=== PATIENT | female | born 1940 | race Two or more races ===

== ENCOUNTER 2018-05-01 13:03 | Inpatient (IN) | payer MEDICARE, OTHER ==
[~2018-05-01] VITALS: Ht 160 cm; Wt 85.7 kg
[~2018-05-01 13:03] MED LIST: ALBUTEROL SULFAT2 MG PO; BISACODYL5 MG RC; CEFEPIME 22 GM/100 M IV; FUROSEMIDE20 M1 PO; HYDRALAZINE HCL10 MG PO; LEVAQUIN500 MG GT; LEVOTHYROXINE100 MCG PO; LEXAPRO10 MG ORAL; MULTI-DELYN237 ML GT; POTASSIUM30 MEQ/22. GT; PRO-STAT LIQUID30 ML GT; PROTONIX40 M2 GT; ROBITUSSIN100 MG/52 GT; ROBITUSSIN100 MG/52 ORAL; ZYPREXA2.5 MG PO
[2018-05-01 13:09] VITALS: BP 151/84
[2018-05-01 13:42] LABS: BASOPHILS % (AUTO) 1.6 % (0.0-2.0); EOSINOPHILS % (AUTO) 3.1 % (0.0-3.0); HEMOGLOBIN 14.7 G/DL (12.0-16.0); LYMPHOCYTES % (AUTO) 34.5 % (20.0-45.0); MEAN CORPUSCULAR VOLUME 90 FL (80-99); NEUTROPHILS % (AUTO) 50.9 % (45.0-75.0); PLATELET COUNT 256 K/UL (150-450); RED BLOOD COUNT 4.98 M/UL (4.20-5.40); RED CELL DISTRIBUTION WIDTH 13.4 % (11.6-14.8); WHITE BLOOD COUNT 7.9 K/UL (4.8-10.8)
[2018-05-01] MEDS ORDERED: ACETAMINOPHEN325 M1 ORAL (13:45)
[2018-05-01] MEDS ORDERED: CALCI-CHEW500 MG PO (13:45)
[2018-05-01 13:55] LABS: ANION GAP 8 mmol/L (5-15); BLOOD UREA NITROGEN 20 mg/dL (7-18); CALCIUM 9.1 MG/DL (8.5-10.1); CARBON DIOXIDE 30 MMOL/L (21-32); CHLORIDE 104 MMOL/L (98-107); CREATININE 1.3 MG/DL (0.55-1.30); POTASSIUM 4.3 MMOL/L (3.5-5.1); SODIUM 141 MMOL/L (136-145)
[2018-05-01 14:01] LABS: ALANINE AMINOTRANSFERASE 7 U/L (12-78); ALBUMIN 3.2 G/DL (3.4-5.0); ALBUMIN/GLOBULIN RATIO 0.6 (1.0-2.7); ALKALINE PHOSPHATASE 124 U/L (46-116); ASPARTATE AMINO TRANSFERASE 11 U/L (15-37); BILIRUBIN,TOTAL 0.3 MG/DL (0.2-1.0)
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
[2018-05-01 15:14] LABS: APPEARANCE,URINE CLEAR; BILIRUBIN, URINE NEGATIVE (NEGATIVE); COLOR,URINE PALE YELLOW; GLUCOSE, URINE (UA) NEGATIVE (NEGATIVE); KETONES,URINE NEGATIVE (NEGATIVE); LEUKOCYTE ESTERASE ,URINE 2+ (NEGATIVE); NITRITE,URINE NEGATIVE (NEGATIVE); PH,URINE 6 (4.5-8.0); PROTEIN,URINE NEGATIVE (NEGATIVE); UROBILINOGEN,URINE NORMAL MG/DL (0.0-1.0)
[2018-05-01] MEDS ORDERED: cefTRIAXone 1 GM in NS 55 ML IVPB ONE (15:45)
[2018-05-01 18:32] VITALS: BP 134/75
[2018-05-01] MEDS ORDERED: NITROFURANTOIN100 M2 ORAL (20:51)
[2018-05-01] MEDS ORDERED: MILK OF MA400 MG/51 ORAL (23:42)
[2018-05-01] MEDS ORDERED: POTASSIUM CHLO10 ME3 ORAL (23:45)
[2018-05-02] VITALS (7 sets, daily range): BP systolic 102–136; BP diastolic 56–88
[2018-05-02] MEDS ORDERED: Bisacodyl EC 5mg tab ORAL SCH
[2018-05-02] MEDS ORDERED: HydrALAZINE 10mg Tab ORAL PRN
[2018-05-02] MEDS ORDERED: Milk of Magnesia 30ml Ud ORAL PRN
[2018-05-02] MEDS: OLANZapine 2.5mg tab ORAL SCH ×2 (08:59→17:44)
[2018-05-02 09:16] LABS: EOSINOPHILS % (AUTO) 2.1 % (0.0-3.0); HEMATOCRIT 43.6 % (37.0-47.0); HEMOGLOBIN 14.5 G/DL (12.0-16.0); LYMPHOCYTES % (AUTO) 33.7 % (20.0-45.0); MEAN CORPUSCULAR VOLUME 90 FL (80-99); MONOCYTES % (AUTO) 8.2 % (1.0-10.0); NEUTROPHILS % (AUTO) 55.1 % (45.0-75.0); PLATELET COUNT 251 K/UL (150-450); RED BLOOD COUNT 4.83 M/UL (4.20-5.40); RED CELL DISTRIBUTION WIDTH 13.4 % (11.6-14.8); WHITE BLOOD COUNT 8.1 K/UL (4.8-10.8)
[2018-05-02 09:19] LABS: ALBUMIN 3.1 G/DL (3.4-5.0); ALBUMIN/GLOBULIN RATIO 0.6 (1.0-2.7); ALKALINE PHOSPHATASE 114 U/L (46-116); ANION GAP 7 mmol/L (5-15); ASPARTATE AMINO TRANSFERASE 12 U/L (15-37); BILIRUBIN,TOTAL 0.3 MG/DL (0.2-1.0); BLOOD UREA NITROGEN 18 mg/dL (7-18); CALCIUM 8.7 MG/DL (8.5-10.1); CARBON DIOXIDE 29 MMOL/L (21-32); CHLORIDE 104 MMOL/L (98-107); CREATININE 1.1 MG/DL (0.55-1.30); POTASSIUM 4.3 MMOL/L (3.5-5.1); SODIUM 140 MMOL/L (136-145)
[2018-05-02 09:33] LABS: ALANINE AMINOTRANSFERASE 7 U/L (12-78)
[2018-05-02] MEDS ORDERED: LORazepam 1mg tab ORAL PRN (11:15)
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
[2018-05-03] VITALS: BP 118/72
[2018-05-03 08:00] VITALS: BP 127/77
[2018-05-03] MEDS: OLANZapine 2.5mg tab ORAL SCH ×2 (09:31→17:21)
[2018-05-03 12:00] VITALS: BP 128/82
--- NOTE | 2018-05-03 13:32 | Infectious Diseases Prog Note ---
Assessment/Plan Assessment/Plan A; 1. Mild pyuria and hematuria. Doubt UTI 2. Dementia with abnormal behavior. 3. Hypothyroidism. 4. Hypertension. 5. Congestive heart failure by history. P; observe off antibiotic Subjective ROS Limited/Unobtainable: No Constitutional: Reports: no symptoms Respiratory: Reports: no symptoms Cardiovascular: Reports: no symptoms Genitourinary: Reports: no symptoms Allergies: Coded Allergies: No Known Allergies (Unverified , 07/24/15) Objective Vital Signs Last 24 Hour Vital Signs Date Time Temp Pulse Resp B/P (MAP) Pulse Ox O2 Delivery O2 Flow Rate FiO2 05/03/18 09:00 Room Air 05/03/18 00:00 97.7 69 18 118/72 (87) 93 05/02/18 21:00 Room Air 05/02/18 20:00 97.1 78 18 102/65 (77) 95 05/02/18 16:00 97.8 80 16 120/56 (77) 96 Height (Feet): 5 Height (Inches): 3.00 Weight (Pounds): 150 General Appearance: no acute distress HEENT: mucous membranes moist Respiratory/Chest: lungs clear Cardiovascular: normal rate Abdomen: soft, non tender Extremities: no edema Neurologic/Psychiatric: alert, responsive Microbiology Date/Time Source Procedure Growth Status 05/01/18 14:56 Urine,Clean Catch Urine Culture - Preliminary Mixed Urogenital Contaminants Resulted Current Medications Medications (Trade) Dose Ordered Sig/Jad Route PRN Reason Start Time Stop Time Status Last Admin Dose Admin Acetaminophen (Tylenol) 650 mg Q4H PRN ORAL for pain and fever 05/02/18 00:00 06/01/18 00:00 Al Hydroxide/Mg Hydroxide (Mylanta) 30 ml Q4HR PRN ORAL GI DISTRESS 05/02/18 00:00 06/01/18 00:00 Bisacodyl (Dulcolax) 10 mg PRN ORAL 05/02/18 00:00 06/01/18 00:00 Escitalopram Oxalate (Lexapro) 10 mg DAILY ORAL 05/02/18 09:00 06/01/18 08:59 05/03/18 09:30 Furosemide (Lasix) 20 mg DAILY ORAL 05/02/18 09:00 06/01/18 08:59 05/03/18 09:32 Hydralazine HCl (Apresoline) 10 mg EVERY 6 HOURS PRN ORAL for SBP >160 05/02/18 00:00 06/01/18 00:00 Levothyroxine Sodium (Synthroid) 200 mcg DAILY ORAL 05/02/18 09:00 06/01/18 08:59 05/03/18 09:30 Lorazepam (Ativan) 2 mg Q6H PRN ORAL For Anxiety 05/02/18 11:15 05/09/18 11:14 Magnesium Hydroxide (Mom) 30 ml DAILYPRN PRN ORAL Constipation 05/02/18 00:00 06/01/18 00:00 Olanzapine (ZyPREXA) 5 mg BID ORAL 05/02/18 09:00 06/01/18 08:59 05/03/18 09:31 Potassium Chloride (K-Dur) 20 meq DAILY ORAL 05/02/18 09:00 06/01/18 08:59 05/03/18 09:31 Seth Blackwell MD May 03, 2018 13:32
[2018-05-03 16:00] VITALS: BP 113/76
[2018-05-03 20:00] VITALS: BP 121/84
--- NOTE | 2018-05-03 22:06 | General Progress Note ---
Assessment/Plan Problem List: (1) UTI (urinary tract infection) ICD Codes: N39.0 - Urinary tract infection, site not specified SNOMED: 74650029 (2) BEHAVIORAL PROBLEMS Status: progressing Assessment/Plan uti improved calm behaviour afebrile will dc in am Subjective ROS Limited/Unobtainable: Yes Constitutional: Reports: no symptoms Allergies: Coded Allergies: No Known Allergies (Unverified , 07/24/15) Objective Last 24 Hour Vital Signs Date Time Temp Pulse Resp B/P (MAP) Pulse Ox O2 Delivery O2 Flow Rate FiO2 05/03/18 21:00 Room Air 05/03/18 20:00 97.9 85 17 121/84 (96) 92 05/03/18 16:00 97.9 81 17 113/76 (88) 92 05/03/18 12:00 97.9 73 128/82 (97) 05/03/18 09:00 Room Air 05/03/18 08:00 97.0 73 19 127/77 (94) 94 05/03/18 00:00 97.7 69 18 118/72 (87) 93 Intake and Output 05/02/18 05/03/18 18:59 06:59 Intake Total 640 ml 240 ml Balance 640 ml 240 ml Intake Oral 640 ml 240 ml # Voids 3 4 # Bowel Movements 1 Height (Feet): 5 Height (Inches): 3.00 Weight (Pounds): 150 General Appearance: confused Neck: supple Cardiovascular: normal rate Respiratory/Chest: lungs clear Abdomen: soft Mimi Carroll MD May 03, 2018 22:05
--- NOTE | 2018-05-04 00:06 | General Progress Note ---
Assessment/Plan Problem List: (1) Failure to thrive SNOMED: 58111503 (2) Psychosis ICD Codes: F29 - Unspecified psychosis not due to a substance or known physiological condition SNOMED: 06550680 (3) BEHAVIORAL PROBLEMS Assessment/Plan the pt will cont on current meds no behaviors no 5150 provided ro/st Subjective Date patient seen: May 03, 2018 Neurologic/Psychiatric: Reports: anxiety, depressed, emotional problems Allergies: Coded Allergies: No Known Allergies (Unverified , 07/24/15) Objective Last 24 Hour Vital Signs Date Time Temp Pulse Resp B/P (MAP) Pulse Ox O2 Delivery O2 Flow Rate FiO2 05/03/18 21:00 Room Air 05/03/18 20:00 97.9 85 17 121/84 (96) 92 05/03/18 16:00 97.9 81 17 113/76 (88) 92 05/03/18 12:00 97.9 73 128/82 (97) 05/03/18 09:00 Room Air 05/03/18 08:00 97.0 73 19 127/77 (94) 94 Intake and Output 05/03/18 05/04/18 18:59 06:59 Intake Total 480 ml Balance 480 ml Intake Oral 480 ml # Voids 4 Height (Feet): 5 Height (Inches): 3.00 Weight (Pounds): 150 General Appearance: no apparent distress, alert, agitated Pily Galo MD May 04, 2018 00:06
[2018-05-04 08:12] VITALS: BP 108/67
[2018-05-04] MEDS: OLANZapine 2.5mg tab ORAL SCH (08:17)
[2018-05-04 14:07] VITALS: BP 131/78
--- NOTE | 2018-05-04 15:16 | General Progress Note ---
Assessment/Plan Problem List: (1) Failure to thrive SNOMED: 20118135 (2) Psychosis ICD Codes: F29 - Unspecified psychosis not due to a substance or known physiological condition SNOMED: 04980432 (3) BEHAVIORAL PROBLEMS Status: stable, progressing Assessment/Plan the pt will cont on current meds no behaviors no 5150 provided ro/st Subjective Date patient seen: May 04, 2018 Neurologic/Psychiatric: Reports: anxiety, emotional problems Allergies: Coded Allergies: No Known Allergies (Unverified , 07/24/15) Objective Last 24 Hour Vital Signs Date Time Temp Pulse Resp B/P (MAP) Pulse Ox O2 Delivery O2 Flow Rate FiO2 05/04/18 14:07 97.9 18 131/78 (95) 82 05/04/18 09:00 Room Air 05/04/18 08:12 97.3 18 108/67 (81) 77 05/03/18 21:00 Room Air 05/03/18 20:00 97.9 85 17 121/84 (96) 92 05/03/18 16:00 97.9 81 17 113/76 (88) 92 Intake and Output 05/03/18 05/04/18 19:00 07:00 Intake Total 480 ml 200 ml Balance 480 ml 200 ml Intake Oral 480 ml 200 ml # Voids 4 Height (Feet): 5 Height (Inches): 3.00 Weight (Pounds): 189 General Appearance: alert, confused, agitated Pily Galo MD May 04, 2018 15:16
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
== END 2018-05-04 15:37 | DRG 71 ==
LOC: EDBD 13:03 → EMR 13:29 → 4E 21:25 → EDBEDREQ 21:35
DX: G93.40 Encephalopathy, unspecified (principal); N39.0 Urinary tract infection, site not specified; F03.91 Unspecified dementia, unspecified severity, with behavioral disturbance; R62.7 Adult failure to thrive; E86.0 Dehydration; I11.0 Hypertensive heart disease with heart failure; E03.9 Hypothyroidism, unspecified; I50.9 Heart failure, unspecified; F39 Unspecified mood [affective] disorder
CPT/HCPCS: 36415; 80053; 80307; 80329; 81003; 85025; 87081; 87086; 93970; 96365; 99285

== ENCOUNTER 2018-08-01 19:04 | Inpatient (IN) | payer MEDICARE, OTHER ==
[~2018-08-01] VITALS: Ht 165.1 cm; Wt 73.5 kg
[~2018-08-01 19:04] MED LIST changes: +ACETAMINOPHEN325 M1 ORAL; +CALCI-CHEW500 MG PO; +MILK OF MA400 MG/51 ORAL; +NITROFURANTOIN100 M2 ORAL; +POTASSIUM CHLO10 ME3 ORAL
[2018-08-01] MEDS ORDERED: Cefepime HCl 2 GM in NS 110 ML IV SCH (20:00)
--- NOTE | 2018-08-01 20:10 | NUR ---
ED Nurse Note: [place]ELLE LUA [place] [facility]/o flu like symptoms for 2 days, at time of arrival patients temp was 98.8. Pt AOx2 (person and place). Complains of sorethroat 10/10 corie. Vital signs stable. Will cont to monitor.
--- NOTE | 2018-08-01 20:46 | NUR ---
ED Nurse Note: PT C/O SORETHROAT AND NECK PAIN, ERMD NOTIFIED. RECEIVED VERBAL ORDER FOR 1000MG TAB TYLENOL ONCE.
[2018-08-01 20:55] LABS: BASOPHILS % (AUTO) 1.4 % (0.0-2.0); EOSINOPHILS % (AUTO) 3.8 % (0.0-3.0); HEMATOCRIT 40.2 % (37.0-47.0); HEMOGLOBIN 13.3 G/DL (12.0-16.0); MEAN CORPUSCULAR VOLUME 91 FL (80-99); MONOCYTES % (AUTO) 11.8 % (1.0-10.0); PLATELET COUNT 301 K/UL (150-450); RED BLOOD COUNT 4.43 M/UL (4.20-5.40); RED CELL DISTRIBUTION WIDTH 12.5 % (11.6-14.8); WHITE BLOOD COUNT 12.5 K/UL (4.8-10.8)
[2018-08-01 20:57] LABS: ANION GAP 9 mmol/L (5-15); BLOOD UREA NITROGEN 18 mg/dL (7-18); CARBON DIOXIDE 29 MMOL/L (21-32); CHLORIDE 100 MMOL/L (98-107); CREATININE 1.1 MG/DL (0.55-1.30); POTASSIUM 4.7 MMOL/L (3.5-5.1); SODIUM 138 MMOL/L (136-145)
[2018-08-01] MEDS ORDERED: Acetaminophen 500mg (ES) tab ORAL ONE (21:00)
[2018-08-01 21:04] LABS: ALANINE AMINOTRANSFERASE 9 U/L (12-78); ALBUMIN 2.7 G/DL (3.4-5.0); ALBUMIN/GLOBULIN RATIO 0.5 (1.0-2.7); ALKALINE PHOSPHATASE 135 U/L (46-116); ASPARTATE AMINO TRANSFERASE 15 U/L (15-37); BILIRUBIN,TOTAL 0.1 MG/DL (0.2-1.0)
[2018-08-01 21:16] LABS: APPEARANCE,URINE CLEAR; BILIRUBIN, URINE NEGATIVE (NEGATIVE); COLOR,URINE PALE YELLOW; GLUCOSE, URINE (UA) NEGATIVE (NEGATIVE); KETONES,URINE NEGATIVE (NEGATIVE); LEUKOCYTE ESTERASE ,URINE 2+ (NEGATIVE); NITRITE,URINE NEGATIVE (NEGATIVE); PH,URINE 5 (4.5-8.0); PROTEIN,URINE NEGATIVE (NEGATIVE); UROBILINOGEN,URINE NORMAL MG/DL (0.0-1.0)
--- NOTE | 2018-08-01 22:53 | Emergency Room Report ---
History of Present Illness General Chief Complaint: Flu Like Symptoms Source: Patient Present Illness HPI This patient [facility] from a [facility] facility. She has a history of congestive heart failure, COPD, schizophrenia. She was found to have pneumonia on chest x-ray prior to arrival. She states that she has had persistent cough and difficulty breathing. There is been no fever or chills. There is been no nausea or vomiting. She has no other complaints. Allergies: Coded Allergies: No Known Allergies (Unverified , 07/24/15) Patient History Past Medical History: see triage record, HTN, NV, CAD, COPD, GERD, dementia, psych hx - bipolar, schizophrenia Social History: Denies: smoking, alcohol use, drug use Last Menstrual Period: n/a Reviewed Nursing Documentation: PMH: Agreed; PSxH: Agreed Nursing Documentation-PMH Past Medical History: No History, Except For Hx Cardiac Problems: Yes - CHF Hx Hypertension: Yes Hx COPD: Yes Hx Gastrointestinal Problems: Yes - g-tube Hx Neurological Problems: Yes - schizo, bipolar Hx Dementia: Yes Review of Systems All Other Systems: negative except mentioned in HPI Physical Exam Vital Signs Date Time Temp Pulse Resp B/P (MAP) Pulse Ox O2 Delivery O2 Flow Rate FiO2 08/01/18 19:05 98.8 86 20 125/73 95 08/01/18 20:12 Room Air Sp02 EP Interpretation: reviewed, normal General Appearance: no apparent distress, alert, GCS 15, non-toxic Head: normocephalic, atraumatic Eyes: bilateral eye normal inspection, bilateral eye PERRL ENT: hearing grossly normal, normal pharynx, no angioedema, normal voice Neck: full range of motion, supple/symm/no masses Respiratory: chest non-tender, no respiratory distress, no retraction, no accessory muscle use, speaking full sentences, wheezing, expiration Cardiovascular #1: regular rate, rhythm, no edema Gastrointestinal: normal bowel sounds, non tender, soft, non-distended, no guarding, no rebound Rectal: deferred Musculoskeletal: back normal, gait/station normal, normal range of motion, non- tender Neurologic: alert, oriented x3, responsive, motor strength/tone normal, sensory intact, speech normal Psychiatric: judgement/insight normal, memory normal, mood/affect normal, no suicidal/homicidal ideation Skin: normal color, no rash, warm/dry, well hydrated Medical Decision Making Diagnostic Impression: Primary Impression: COPD exacerbation ER Course This elderly female presents with COPD exacerbation. She is given broad- spectrum antibiotics, steroids and albuterol and Atrovent nebulizer treatments. She continued to have wheezing and shortness of breath. She is admitted for further treatment and pulmonary hygiene of her COPD exacerbation. Laboratory Tests Test 08/01/18 20:15 08/01/18 20:50 White Blood Count 12.5 K/UL (4.8-10.8) H Red Blood Count 4.43 M/UL (4.20-5.40) Hemoglobin 13.3 G/DL (12.0-16.0) Hematocrit 40.2 % (37.0-47.0) Mean Corpuscular Volume 91 FL (80-99) Mean Corpuscular Hemoglobin 30.0 PG (27.0-31.0) Mean Corpuscular Hemoglobin Concent 33.0 G/DL (32.0-36.0) Red Cell Distribution Width 12.5 % (11.6-14.8) Platelet Count 301 K/UL (150-450) Mean Platelet Volume 4.5 FL (6.5-10.1) L Neutrophils (%) (Auto) 56.0 % (45.0-75.0) Lymphocytes (%) (Auto) 27.0 % (20.0-45.0) Monocytes (%) (Auto) 11.8 % (1.0-10.0) H Eosinophils (%) (Auto) 3.8 % (0.0-3.0) H Basophils (%) (Auto) 1.4 % (0.0-2.0) Sodium Level 138 MMOL/L (136-145) Potassium Level 4.7 MMOL/L (3.5-5.1) Chloride Level 100 MMOL/L (98-107) Carbon Dioxide Level 29 MMOL/L (21-32) Anion Gap 9 mmol/L (5-15) Blood Urea Nitrogen 18 mg/dL (7-18) Creatinine 1.1 MG/DL (0.55-1.30) Estimate Glomerular Filtration Rate mL/min (>60) Glucose Level 105 MG/DL (74-106) Calcium Level 9.0 MG/DL (8.5-10.1) Total Bilirubin 0.1 MG/DL (0.2-1.0) L Aspartate Amino Transferase (AST) 15 U/L (15-37) Alanine Aminotransferase (ALT) 9 U/L (12-78) L Alkaline Phosphatase 135 U/L (46-116) H Total Protein 8.3 G/DL (6.4-8.2) H Albumin 2.7 G/DL (3.4-5.0) L Globulin 5.6 g/dL Albumin/Globulin Ratio 0.5 (1.0-2.7) L Urine Color Pale yellow Urine Appearance Clear Urine pH 5 (4.5-8.0) Urine Specific [place] 1.015 (1.005-1.035) Urine Protein Negative (NEGATIVE) Urine Glucose (UA) Negative (NEGATIVE) Urine Ketones Negative (NEGATIVE) Urine Blood 1+ (NEGATIVE) H Urine Nitrite Negative (NEGATIVE) Urine Bilirubin Negative (NEGATIVE) Urine Urobilinogen Normal MG/DL (0.0-1.0) Urine Leukocyte Esterase 2+ (NEGATIVE) H Urine RBC 0-2 /HPF (0 - 2) Urine WBC 2-4 /HPF (0 - 2) Urine Squamous Epithelial Cells Few /LPF (NONE/OCC) Urine Bacteria Few /HPF (NONE) Microbiology Date/Time Source Procedure Growth Status 08/01/18 20:15 Nasal Nares Influenza Types A,B Antigen (LANDY) - Final Complete EKG Diagnostic Results Rate: normal Rhythm: NSR ST Segments: no acute changes Rhythm Strip Diag. Results EP Interpretation: yes Rate: 80's Rhythm: NSR, no PVC's, no ectopy Chest X-Ray Diagnostic Results Chest X-Ray Diagnostic Results : Chest X-Ray Ordered: Yes # of Views/Limited/Complete: 1 View Indication: Shortness of Breath Interpretation: no consolidation, no effusion, no pneumothorax, no acute cardiopulmonary disease Impression: No acute disease Electronically Signed by: Emily Mixon DO Last Vital Signs Date Time Temp Pulse Resp B/P (MAP) Pulse Ox O2 Delivery O2 Flow Rate FiO2 08/01/18 20:12 86 20 Room Air 08/01/18 19:05 98.8 125/73 95 Disposition: ADMITTED INPATIENT Condition: Serious Referrals: Mimi Carroll MD (PCP) Emily Mixon DO Aug 01, 2018 22:53
[2018-08-01] MEDS ORDERED: Albuterol ud Inhalation HHN ONE (23:00)
--- NOTE | 2018-08-01 23:10 | NUR ---
ER Nurse Note: Pt was transfered from fast track. Pt calm, resting in bed, no signs of distress. VSS, on room air. Pt voids with no difficulty on bedside commode. All safety measures met, will continue to montior.
[2018-08-02] VITALS (7 sets, daily range): BP systolic 121–138; BP diastolic 57–79
--- NOTE | 2018-08-02 01:23 | NUR ---
ER Nurse Note: Report given to DAVID Patel in tele for continutiy of care. Pt a&ox4, VSS, no signs of distress. Pt has wheezes, O2 97% on room air. Pt shows no signs of resp distress. Pt hazel a blue tent on lower lip. Pt left with all belongings.
--- NOTE | 2018-08-02 02:30 | NUR ---
NURSE NOTES: Received patient from ER via gurney, awake and alert x3, no s/s distress noted. C/o sore throat when she coughes. VS taken and stable. Skin is intact. Belonging list check done. Instructed to use call light for assistance. Call light within reach. Order noted and carried out.
[2018-08-02] MEDS ORDERED: Albuterol/Ipratropium 3ml neb HHN PRN (02:45)
[2018-08-02] MEDS ORDERED: Milk of Magnesia 30ml Ud ORAL PRN (02:45)
[2018-08-02] MEDS ORDERED: HydrALAZINE 10mg Tab ORAL PRN (02:45)
--- NOTE | 2018-08-02 07:10 | NUR ---
HAND-OFF: Report given to Danie HERNANDEZ.
--- NOTE | 2018-08-02 07:56 | NUR ---
NURSE NOTES: Patient in supine position, sleeping, respirations at 18 breaths per minute, on 2 liters nasal cannula, no c/o pain, no SOB, in no apparent distress, bed in lowest position, call light within reach.
[2018-08-02 08:06] LABS: BASOPHILS % (AUTO) 0.3 % (0.0-2.0); EOSINOPHILS % (AUTO) 0.3 % (0.0-3.0); HEMATOCRIT 39.5 % (37.0-47.0); HEMOGLOBIN 12.9 G/DL (12.0-16.0); LYMPHOCYTES % (AUTO) 24.6 % (20.0-45.0); MEAN CORPUSCULAR VOLUME 92 FL (80-99); MONOCYTES % (AUTO) 1.6 % (1.0-10.0); NEUTROPHILS % (AUTO) 73.2 % (45.0-75.0); PLATELET COUNT 300 K/UL (150-450); RED BLOOD COUNT 4.28 M/UL (4.20-5.40); RED CELL DISTRIBUTION WIDTH 12.9 % (11.6-14.8); WHITE BLOOD COUNT 11.4 K/UL (4.8-10.8)
[2018-08-02 08:20] LABS: ALANINE AMINOTRANSFERASE 8 U/L (12-78); ALBUMIN 2.5 G/DL (3.4-5.0); ALBUMIN/GLOBULIN RATIO 0.5 (1.0-2.7); ALKALINE PHOSPHATASE 123 U/L (46-116); ANION GAP 10 mmol/L (5-15); ASPARTATE AMINO TRANSFERASE 10 U/L (15-37); BILIRUBIN,TOTAL 0.1 MG/DL (0.2-1.0); BLOOD UREA NITROGEN 16 mg/dL (7-18); CALCIUM 8.4 MG/DL (8.5-10.1); CARBON DIOXIDE 27 MMOL/L (21-32); CHLORIDE 102 MMOL/L (98-107); CREATININE 1.3 MG/DL (0.55-1.30); POTASSIUM 3.7 MMOL/L (3.5-5.1); SODIUM 138 MMOL/L (136-145)
--- NOTE | 2018-08-02 08:29 | NUR ---
CASE MANAGEMENT:REVIEW 78 YR OLD FEMALE BIBA FROM [facility] CC: FLU LIKE SYMPTOMS X2 DAYS. MULTI-LOBAR PNA ON XRAY PRIOR TO ARRIVAL (PER ER NOTES) SI: PNA. COPD 98.8 86 20 125/73 95% ON RA WBC+12.5 IS: IV CEFEPIME 1L NS BOLUS TYLENOL PO ALBUTEROL HHN PREDNISONE PO CXR BLOOD CX : TO TELEMETRY INTERQUAL CRITERIA MET
[2018-08-02] MEDS ORDERED: Bisacodyl EC 5mg tab ORAL PRN (09:00)
--- NOTE | 2018-08-02 12:08 | Diagnostic Imaging Report ---
Indication: Dyspnea Comparison: 08/01/2018 A single view chest radiograph was obtained. Findings: Lung volumes are low. There is some interstitial prominence present. Heart size is normal. Bones are osteopenic IMPRESSION: No acute findings
--- NOTE | 2018-08-02 12:36 | Diagnostic Imaging Report ---
Indication: Cough Comparison: 07/26/2015 A single view chest radiograph was obtained. Findings: Right hemidiaphragm is elevated, which is chronic and unchanged. The heart is prominent. Aorta is ectatic. Bones are osteopenic. IMPRESSION: No acute findings
--- NOTE | 2018-08-02 15:36 | Cardiology Report ---
APPROVED REPORT EKG Measurement Heart [id number] Normal sinus rhythm Normal ECG
--- NOTE | 2018-08-02 16:04 | Consultation ---
Consult Note Assessment/Plan DICT # [id number] Roberto Joshua MD Aug 02, 2018 16:04
[2018-08-02] MEDS: Piperacillin/Tazobactam 3.375 GM in D5W 110 ML IVPB SCH ×2 (17:31→21:48)
--- NOTE | 2018-08-02 19:19 | NUR ---
HAND-OFF: Report given to Lachelle House RN. Patient sitting up in bed, respiratory called for ABG's and for breathding treatment, awake and alert, no complaints of pain, bed in lowest position, call light [facility], IV running into patent LFA 20 gauge.
--- NOTE | 2018-08-02 19:40 | NUR ---
NURSE NOTES: After receiving report from Luis Roque RN at 1935, AM RN declined to have handoff in patient room. Went to pt room to check on patient and found patient on the floor. Pt states that she was attempting to go to the bathroom. Pt is awake, alert, and oriented x3, no neurological changes noted. Pt denies any head injury. No visible injury to body or skin noted. Pt denies pain. Pt assisted to bedside commode and then to [place] bed by RN and MATH AND SCIENCE INSTRUCTOR. Bed placed in lowest position with brake engaged, side rails up x3, and bed alarm on. Call light and side table placed within reach. Pt advised to call prior to attempting to get out of bed, pt verbalized understanding. Will continue to monitor and notify MD Carroll.
--- NOTE | 2018-08-02 19:45 | Consultation ---
DATE OF CONSULTATION: 08/02/2018 INFECTIOUS DISEASES CONSULTATION CONSULTING PHYSICIAN: Catarina Glez M.D. REFERRING PHYSICIAN: Mimi Carroll M.D. This consultation has been done on behalf of Dr. Seth Blackwell. REASON FOR CONSULTATION: Pneumonia. HISTORY OF PRESENTING ILLNESS: This is a 78-year-old lady with history of hypertension, congestive heart failure, schizophrenia, bipolar disorder, dementia, and G-tube placement who comes in from a [facility] facility with cough and shortness of breath. She was found to have a pneumonia and an Infectious Diseases consultation has been obtained for antibiotics. PAST MEDICAL HISTORY: 1. History of hypertension. 2. Congestive heart failure. 3. COPD. 4. Status post G-tube placement. 5. Schizophrenia. 6. Bipolar disorder. 7. Dementia. MEDICATIONS: As an inpatient, she is on Zyprexa, Dulcolax, Lexapro, Lasix, potassium, levothyroxine, Tylenol, hydralazine, milk of magnesia, albuterol, and ipratropium. ALLERGIES: No known drug allergies. SOCIAL HISTORY: Unknown. FAMILY HISTORY: Unknown. REVIEW OF SYSTEMS: Unable to obtain currently. PHYSICAL EXAMINATION: VITAL SIGNS: Temperature of 97.3, T-max of 98.8, pulse of 82, respiratory rate of 18, blood pressure 138/72, and O2 saturation of 95%. HEENT: Pupils equally reactive to light and accommodation. Mouth appears clean without thrush. NECK: Supple. No adenopathy. No JVD. CARDIOVASCULAR: Regular rate and rhythm. No murmurs. LUNGS: Clear to auscultation bilaterally. No crackles. No wheezes. ABDOMEN: Soft and nontender. No organomegaly. EXTREMITIES: No cyanosis, no clubbing, and no edema. LABORATORY AND DIAGNOSTIC DATA: White count of 12.5 on 08/01/2018 and 11.4 on 08/02/2018, hemoglobin 12.9, hematocrit 9.5, MCV 92, and platelet count of 300,000 with neutrophils of 73%. Sodium 138, potassium 3.7, chloride 102, bicarb 27, BUN 16, creatinine 1.3, glucose 196, calcium 8.4, and total bilirubin 1.1. AST 10, ALT 8, alkaline phosphatase 143. Total protein 7.8 and albumin 2.5. UA is showing 2 to 4 white cells. Nasal swab was negative for influenza A and B. ASSESSMENT: This is a 78-year-old lady with history of hypertension, congestive heart failure, and COPD, who comes in from a prison facility with shortness of breath as well as cough, and is found to have: 1. Possible aspiration pneumonia. 2. COPD. PLAN: 1. We will order sputum for Gram stain and culture. 2. We will start the patient on Zosyn. 3. We will follow up cultures and adjust antibiotics accordingly. I would like to thank, Dr. Carroll, for this consultation. Catarina Glez M.D. DR: HEATHER JOB#: [id number] CC: Mimi Carroll M.D.; Fax#: [phone]
--- NOTE | 2018-08-02 19:45 | NUR ---
NURSE NOTES: L FA #20g IV site is infiltrated. Site is edematous and puffy. IV discontinued. L arm elevated. New IV site placed in R hand #22g - asymptomatic, patent, and intact. Saline locked. Will continue to monitor.
[2018-08-02] MEDS: Albuterol/Ipratropium 3ml neb HHN SCH (19:58)
--- NOTE | 2018-08-02 21:35 | NUR ---
NURSE NOTES: ABGs drawn and resulted. ABG and d-dimer results called to MD Joshua. requesting venous duplex results. Will attempt to locate results and update MD Joshua with information.
[2018-08-02] MEDS: Heparin 5000 units/ml inj SUBQ SCH (21:48)
--- NOTE | 2018-08-02 22:30 | Consultation ---
DATE OF CONSULTATION: 08/02/2018 PULMONARY CONSULTATION CONSULTING PHYSICIAN: Roberto Joshua M.D. REFERRING PHYSICIAN: Mimi Carroll M.D. REASON FOR CONSULTATION: Possible COPD exacerbation. HISTORY OF PRESENT ILLNESS: The patient is a 78-year-old female, senior living resident with a stated history of COPD per her records, who sent in from a senior living with shortness of breath, cough, congestion, and difficulty breathing. Since coming in the ER, she has been afebrile. Today, vital signs have been stable. Chest x-ray was unremarkable. She had mild leukocytosis. She has been saturating well on approximately 2 L. The patient herself feels better. She has some cough and congestion. No wheezing. Mild shortness of breath. No fevers, chills, headaches, dizziness, nausea, vomiting, diarrhea, constipation, abdominal pain, or urinary complaints. History is obtained through review of the records. The patient was last admitted here with an episode of psychosis per stated history. PAST MEDICAL HISTORY: COPD, hypertension, schizophrenia, and possible underlying cardiac disease. The patient had a gastrostomy in the past. PAST SURGICAL HISTORY: Unknown. SOCIAL HISTORY: She is a senior living resident. No known history of tobacco, alcohol, or drug use. FAMILY HISTORY: Unknown. REVIEW OF SYSTEMS: Negative. PHYSICAL EXAMINATION: VITAL SIGNS: Temperature is 97.3, pulse 82, blood pressure 130/72, respiratory rate 18, and saturating 95% on 2 L. GENERAL: She is an elderly female, in no acute distress. Awake, alert, and oriented x3. HEENT: Normocephalic and atraumatic. Oropharynx is clear with moist mucous membranes. NECK: Supple without lymphadenopathy or JVD. CHEST: Clear to auscultation bilaterally without wheezing, rales, or rhonchi. HEART: Regular rate and rhythm. ABDOMEN: Soft, nontender, and nondistended. EXTREMITIES: No cyanosis, clubbing, or edema. ANCILLARY DATA: White count 11.4, hemoglobin 12.9, and platelet count 300,000. Sodium 138, potassium 3.7, chloride 102, bicarbonate 27, BUN 16, creatinine 1.3, glucose 196, and calcium 8.4. Total bilirubin 0.1. AST 10, ALT 8, and alkaline phosphatase 122. Total protein 7.8. Albumin 2.5. Urinalysis - 1+ blood and 2+ leukocyte esterase. Rapid flu negative. Chest x-ray unremarkable. CT of the chest done in 2016 showed an elevated right hemidiaphragm with pneumonia. At that time, there was a 3 mm right lung nodule, hilar calcifications, and old granulomatous disease. It does not appear that a followup CT was ever done. ASSESSMENT: The patient is a 78-year-old female, senior living resident with presumed history of COPD, schizophrenia, hypertension, hyperlipidemia, diabetes, and hypothyroidism, presenting with respiratory illness, possible exacerbation of underlying COPD. She has mild leukocytosis, but does not otherwise appear infected from a pulmonary standpoint. Prior CT in 2016 showed some hilar adenopathy and pulmonary parenchymal nodularity for which a followup CT has not been done. PROBLEM LIST: 1. COPD with acute exacerbation. 2. Prior history of lung nodules. 3. Hilar adenopathy. 4. Old granulomatous disease. 5. Possible URI versus bronchitis, doubt pneumonia. 6. CHF. 7. Schizophrenia. 8. Hypertension. 9. Hyperlipidemia. 10. Hypothyroidism. 11. Diabetes. TREATMENT PLAN: 1. Optimize pulmonary hygiene/mobilize as tolerated. 2. PRN O2 to keep saturations greater than 90%. 3. Prednisone 40 mg p.o. daily (today is day #1). 4. [id number] and p.r.n. DuoNebs. 5. Antibiotics per ID. 6. CT chest. 7. Swallow evaluation. 8. Aspiration precaution. 9. Monitor volumes and renal function. 10. DVT prophylaxis, heparin subcutaneous. 11. Followup echocardiogram. 12. The patient is a Full Code. Dr. Carroll, thank you for allowing me to assist in the care of your patient. If I may be of any assistance, please do not hesitate to ask. Roberto Joshua M.D. DR: TARAH JOB#: [id number] CC:
--- NOTE | 2018-08-02 22:35 | NUR ---
NURSE NOTES: MD Joshua notified that venous duplex was taken but has not been resulted yet. Per MD Joshua, order STAT VQ scan. Orders noted and carried out.
--- NOTE | 2018-08-02 22:45 | NUR ---
NURSE NOTES: Spoke with Ovidio rfid technician marketing operations assistant to give report and update re: STAT VQ scan. Per Ovidio, ETA for material arrival on site is approximately 2 hours. Will follow up when he is ready for pt to be brought down for scan.
[2018-08-03] VITALS: BP 141/80
--- NOTE | 2018-08-03 | NUR ---
NURSE NOTES: MD Carroll aware of pt found sitting at bedside. Per MD, initiate neuro checks Q24 hours. Pt remains in stable condition. Will continue to monitor.
--- NOTE | 2018-08-03 00:30 | NUR ---
NURSE NOTES: Ovidio test engineer nuclear equipment, on site and prepped for patient to be brought down for STAT VQ scan. Pt placed on portable monitoring manager and this RN to accompany patient down during scan.
--- NOTE | 2018-08-03 00:40 | NUR ---
NURSE NOTES: Ovidio nuclear fuel processing technician, at bedside with patient. Pt placed on portable cafeteria monitor. Pt transferred via charles bed to room for scan and transferred to table without incident. Pt in stable condition upon transfer. A+Ox3. NSR on monitor. HR 72. Breathing even and unlabored on 3L O2 via nasal cannula. RN to remain with pt for duration of scan.
[2018-08-03] MEDS: Albuterol/Ipratropium 3ml neb HHN SCH ×4 (01:00→19:33)
--- NOTE | 2018-08-03 01:30 | NUR ---
NURSE NOTES: Pt transferred back to room via charles bed without incident. Pt in stable condition upon transfer. A+Ox3. nurse monitoring replaced and pt noted to be NSR on monitor. HR 78. On 3L O2 via nasal cannula, breathing even and unlabored. No acute distress noted. Estimated time for preliminary VQ scan results is 1 hour. Will contact MD Joshua with results.
--- NOTE | 2018-08-03 01:43 | NUR ---
[facility]
--- NOTE | 2018-08-03 02:45 | History and Physical Report ---
DATE OF ADMISSION: 08/01/2018 HISTORY OF PRESENT ILLNESS: The patient is admitted for multilobar pneumonia. The patient has been having shortness of breath and wheezing and coughing at the facility. Initially, she refused to come. I was able to go myself and talk to the patient. The family convinced her to go and she finally agreed to be hospitalized and the patient is admitted for pneumonia. Again, initially the patient refused to go and I was finally able to convince to go to with the hospital. The patient is Tajik speaking. Denies chest pain. PAST MEDICAL HISTORY: Significant for depression, constipation, hypertension, hypothyroidism, psychosis, and hypokalemia. PAST SURGICAL HISTORY: Tonsillectomy. ALLERGIES: None. MEDICATIONS: Lexapro, calcium, bisacodyl, Tylenol, Lasix, hydralazine, Levoxyl, , and potassium. FAMILY HISTORY: Noncontributory. SOCIAL HISTORY: Denies history of alcohol or illicit drugs. REVIEW OF SYSTEMS: HEENT: Denies headaches. RESPIRATORY: Reports shortness of breath for couple of days as well as cough for couple of days. GASTROINTESTINAL: Denies nausea, vomiting, or diarrhea. EXTREMITIES: Denies any significant pain. CENTRAL NERVOUS SYSTEM: No change in speech pattern. Feels very weak. PHYSICAL EXAMINATION: VITAL SIGNS: Temperature is 97.3, pulse is 82, and blood pressure 138/70. HEENT: PERRLA. NECK: Supple. No lymphadenopathy. CHEST: Bibasilar wheezing and rales. CARDIOVASCULAR: Regular rate and rhythm. GASTROINTESTINAL: Soft and nontender. Positive bowel sounds. No organomegaly. EXTREMITIES: No edema. Reflexes are equal on both sides. Generalized weakness. Moves all extremities. LABORATORY DATA: Laboratory lentz, WBC 5.5, hemoglobin 13.3, and platelets is 301,000. Sodium 138, potassium 4.7, BUN of 18, creatinine 1.1, and glucose of 105. ASSESSMENT: 1. Pneumonia on the x-ray. 2. dehydration. PLAN: I have asked Dr. Martin, Dr. Seth Blackwell, and Dr. Joshua to see the patient for dehydration and treatment of pneumonia. The patient will be on supportive therapy and oxygen as needed. Ali Tyler Carroll DR: SANDY JOB#: [id number] CC:
--- NOTE | 2018-08-03 03:21 | NUR ---
NURSE NOTES: [facility] preliminary results obtained. States "low probability for PE." Message left for MD Joshua to communicate results. Pt in stable condition, resting comfortably in bed. Will continue to monitor.
[2018-08-03 04:00] VITALS: BP 105/70
[2018-08-03] MEDS: Piperacillin/Tazobactam 3.375 GM in D5W 110 ML IVPB SCH ×3 (05:50→21:36)
--- NOTE | 2018-08-03 07:01 | NUR ---
NURSE NOTES: MD Joshua aware of [facility] results for STAT VQ scan from last night. No new orders at this time. Will endorse plan of care to day shift RN.
--- NOTE | 2018-08-03 07:13 | NUR ---
HAND-OFF: Report given to Osiris Gomez RN. Pt is sleeping in bed in stable condition. No acute distress noted. Endorsed plan of care.
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
[2018-08-03 08:00] VITALS: BP 118/62
[2018-08-03] MEDS: Heparin 5000 units/ml inj SUBQ SCH ×2 (08:07→21:10)
--- NOTE | 2018-08-03 09:19 | Pulmonology Progress Note ---
Assessment/Plan Problems: (1) COPD exacerbation (2) Pneumonia (3) BEHAVIORAL PROBLEMS Assessment/Plan ASSESSMENT: The patient is a 78-year-old female, half-way resident with presumed history of COPD, schizophrenia, hypertension, hyperlipidemia, diabetes , and hypothyroidism, presenting with respiratory illness, possible exacerbation of underlying COPD. She has mild leukocytosis, but does not otherwise appear infected from a pulmonary standpoint. Prior CT in 2016 showed some hilar adenopathy and pulmonary parenchymal nodularity for which a followup CT has not been done. PROBLEM LIST: 1. COPD with acute exacerbation. 2. Prior history of lung nodules. 3. Hilar adenopathy. 4. Old granulomatous disease. 5. Possible URI versus bronchitis, doubt pneumonia. 6. CHF. 7. Schizophrenia. 8. Hypertension. 9. Hyperlipidemia. 10. Hypothyroidism. 11. Diabetes. TREATMENT PLAN: 1. Optimize pulmonary hygiene/mobilize as tolerated. 2. PRN O2 to keep saturations greater than 90%. 3. Prednisone 40 mg p.o. daily (today is day #2). 4. [id number] and p.r.n. DuoNebs. 5. Antibiotics per ID. 6. F/U CT chest. 7. Swallow evaluation. 8. Aspiration precaution. 9. Monitor volumes and renal function. 10. DVT prophylaxis, heparin subcutaneous. 11. Followup echocardiogram. 12. D-dimer elevated, duplex done result pending, VQ LP 12. The patient is a Full Code. Subjective Allergies: Coded Allergies: No Known Allergies (Unverified , 07/24/15) Subjective AFVSS O2 needs better D-dimer elevated VQ neg Duplex done report? CT pending No SOB less cough clear phlegm no wheezing no CP no FC Objective Last 24 Hour Vital Signs Date Time Temp Pulse Resp B/P (MAP) Pulse Ox O2 Delivery O2 Flow Rate FiO2 08/03/18 08:00 97.0 85 17 118/62 (80) 93 08/03/18 07:40 69 18 99 Room Air 21 08/03/18 07:30 66 16 Room Air 21 08/03/18 07:30 66 16 99 Nasal Cannula 2.0 28 08/03/18 04:00 98.0 74 20 105/70 (82) 96 08/03/18 04:00 74 08/03/18 01:03 Nasal Cannula 2.0 28 08/03/18 01:02 Nasal Cannula 2.0 28 08/03/18 00:00 86 08/03/18 00:00 98.4 81 20 141/80 (100) 95 08/02/18 21:00 Nasal Cannula 4.0 08/02/18 20:05 78 20 98 Room Air 21 08/02/18 20:00 98.2 80 20 124/66 (85) 94 08/02/18 20:00 78 08/02/18 19:59 75 20 93 Room Air 21 08/02/18 19:59 75 18 Room Air 21 08/02/18 16:00 91 08/02/18 16:00 98.2 80 18 126/66 (86) 95 08/02/18 12:00 98.2 81 20 134/79 (97) 94 08/02/18 12:00 77 Intake and Output 08/02/18 08/03/18 18:59 06:59 Intake Total 360 ml Balance 360 ml Intake Oral 360 ml # Voids 3 2 General Appearance: WD/WN, no acute distress HEENT: normocephalic, atraumatic, anicteric, mucous membranes moist Respiratory/Chest: chest wall non-tender, lungs clear - but distant, normal breath sounds, no respiratory distress, no accessory muscle use Cardiovascular: normal peripheral pulses, normal rate, regular rhythm Abdomen: normal bowel sounds, soft, non tender, no organomegaly, non distended , no mass Extremities: no cyanosis, no clubbing, no edema Microbiology Date/Time Source Procedure Growth Status 08/01/18 20:20 Blood Blood Culture - Preliminary NO GROWTH AFTER 24 HOURS Resulted 08/01/18 20:15 Blood Blood Culture - Preliminary NO GROWTH AFTER 24 HOURS Resulted 08/01/18 20:15 Nasal Nares Influenza Types A,B Antigen (LANDY) - Final Complete 08/02/18 01:30 Rectum Received Laboratory Tests 08/02/18 17:05: D-Dimer 1.09H 08/02/18 20:45: Arterial Blood pH 7.387, Arterial Blood Partial Pressure CO2 45.5H, Arterial Blood Partial Pressure O2 70.1L, Arterial Blood HCO3 26.7H, Arterial Blood Oxygen Saturation 93.3L, Arterial Blood Base Excess 1.3, Eder Test Positive Current Medications Medications (Trade) Dose Ordered Sig/Jad Route PRN Reason Start Time Stop Time Status Last Admin Dose Admin Acetaminophen (Tylenol) 650 mg Q4H PRN ORAL for pain and fever 08/02/18 02:45 09/01/18 02:44 08/03/18 02:03 Albuterol/ Ipratropium (Albuterol/ Ipratropium) 3 ml Q4H PRN HHN Shortness of Breath 08/02/18 02:45 08/07/18 02:44 08/02/18 04:52 Albuterol/ Ipratropium (Albuterol/ Ipratropium) 3 ml Q6HRT HHN 08/02/18 19:00 08/07/18 18:59 08/03/18 07:30 Bisacodyl (Dulcolax) 10 mg DAILY PRN ORAL Constipation 08/02/18 09:00 09/01/18 08:59 Escitalopram Oxalate (Lexapro) 10 mg DAILY ORAL 08/02/18 09:00 09/01/18 08:59 08/03/18 08:05 Furosemide (Lasix) 20 mg DAILY ORAL 08/02/18 09:00 09/01/18 08:59 08/03/18 08:05 Heparin Sodium (Porcine) (Heparin 5000 units/ml) 5,000 units EVERY 12 HOURS SUBQ 08/02/18 21:00 09/01/18 20:59 08/03/18 08:07 Hydralazine HCl (Apresoline) 10 mg Q6H PRN ORAL for SBP >160 08/02/18 02:45 09/01/18 02:44 Levothyroxine Sodium (Synthroid) 200 mcg ACBREAKFAST ORAL 08/02/18 06:30 09/01/18 06:29 08/03/18 05:50 Magnesium Hydroxide (Mom) 30 ml DAILY PRN ORAL Constipation 08/02/18 02:45 09/01/18 02:44 Olanzapine (ZyPREXA) 5 mg BEDTIME ORAL 08/02/18 21:00 09/01/18 20:59 08/02/18 21:47 Piperacillin Sod/ Tazobactam Sod 3.375 gm/Dextrose 110 ml @ 27.5 mls/hr EVERY 8 HOURS IVPB 08/02/18 14:00 08/07/18 13:59 08/03/18 05:50 Potassium Chloride (K-Dur) 20 meq DAILY ORAL 08/02/18 09:00 09/01/18 08:59 08/03/18 08:05 Prednisone (predniSONE) 40 mg DAILY ORAL 08/03/18 09:00 09/02/18 08:59 08/03/18 08:08 Roberto Joshua MD Aug 03, 2018 09:19
--- NOTE | 2018-08-03 09:36 | NUR ---
NURSE NOTES: Per Dr. Glen chery for off tele for CT chest.
--- NOTE | 2018-08-03 10:36 | Diagnostic Imaging Report ---
Indications: Shortness of breath and elevated d-dimer Technique: IV administration 5 mCi 99m technetium macroaggregated albumin. Images obtained over the lungs in multiple projections. Previously, patient inhaled 40 mCi aerosolized 99M technetium DTPA. Images obtained over the lungs in multiple projections Comparison: Reference made to chest radiograph dated 08/01/2018 Findings: There is elevation of the right hemidiaphragm, also documented on prior chest radiograph. Perfusion is somewhat heterogeneous, but no definite segmental or subsegmental perfusion defects are demonstrated and there is no evidence of perfusion/aerosol mismatch. Impression: Findings deemed low probability for pulmonary embolus This agrees with the preliminary interpretation provided overnight by [facility] teleradiology service.
--- NOTE | 2018-08-03 11:05 | NUR ---
NURSE NOTES: Per Sunita, speech therapist, stated patient tolerating well to solid food, swallowing without difficulty. Dr. Carroll made aware ST request to upgrade diet from pureed-moist to soft easy chew. Per Dr. Carroll upgrade diet to soft easy chew. Order entered, noted, carried out.
--- NOTE | 2018-08-03 11:58 | Infectious Diseases Prog Note ---
Assessment/Plan Assessment/Plan A; Pneumonia COPD Dementia Psychosis HPN Hypothyroidism P; Continue Zosyn will f/u cultures Subjective ROS Limited/Unobtainable: No Constitutional: Reports: no symptoms Respiratory: Reports: productive cough Cardiovascular: Reports: no symptoms Gastrointestinal/Abdominal: Reports: no symptoms Genitourinary: Reports: no symptoms Musculoskeletal: Reports: pain, other - left knee Allergies: Coded Allergies: No Known Allergies (Unverified , 07/24/15) Objective Vital Signs Last 24 Hour Vital Signs Date Time Temp Pulse Resp B/P (MAP) Pulse Ox O2 Delivery O2 Flow Rate FiO2 08/03/18 09:00 Nasal Cannula 4.0 08/03/18 08:00 97.0 85 17 118/62 (80) 93 08/03/18 08:00 81 08/03/18 07:40 69 18 99 Room Air 21 08/03/18 07:30 66 16 Room Air 21 08/03/18 07:30 66 16 99 Nasal Cannula 2.0 28 08/03/18 04:00 98.0 74 20 105/70 (82) 96 08/03/18 04:00 74 08/03/18 01:03 Nasal Cannula 2.0 28 08/03/18 01:02 Nasal Cannula 2.0 28 08/03/18 00:00 86 08/03/18 00:00 98.4 81 20 141/80 (100) 95 08/02/18 21:00 Nasal Cannula 4.0 08/02/18 20:05 78 20 98 Room Air 21 08/02/18 20:00 98.2 80 20 124/66 (85) 94 08/02/18 20:00 78 08/02/18 19:59 75 20 93 Room Air 21 08/02/18 19:59 75 18 Room Air 21 08/02/18 16:00 91 08/02/18 16:00 98.2 80 18 126/66 (86) 95 08/02/18 12:00 98.2 81 20 134/79 (97) 94 08/02/18 12:00 77 Height (Feet): 5 Height (Inches): 5.00 Weight (Pounds): 162 General Appearance: no acute distress HEENT: mucous membranes moist Respiratory/Chest: lungs clear Cardiovascular: normal rate Abdomen: soft, non tender Extremities: no edema Neurologic/Psychiatric: alert, responsive Microbiology Date/Time Source Procedure Growth Status 08/01/18 20:20 Blood Blood Culture - Preliminary NO GROWTH AFTER 24 HOURS Resulted 08/01/18 20:15 Blood Blood Culture - Preliminary NO GROWTH AFTER 24 HOURS Resulted 08/01/18 20:15 Nasal Nares Influenza Types A,B Antigen (LANDY) - Final Complete 08/02/18 01:30 Rectum Received Laboratory Tests Test 08/02/18 17:05 08/02/18 20:45 D-Dimer 1.09 mg/L FEU (0.00-0.49) H Arterial Blood pH 7.387 (7.350-7.450) Arterial Blood Partial Pressure CO2 45.5 mmHg (35.0-45.0) H Arterial Blood Partial Pressure O2 70.1 mmHg (75.0-100.0) L Arterial Blood HCO3 26.7 mmol/L (22.0-26.0) H Arterial Blood Oxygen Saturation 93.3 % (95-100) L Arterial Blood Base Excess 1.3 (-2-2) Eder Test Positive Current Medications Medications (Trade) Dose Ordered Sig/Jad Route PRN Reason Start Time Stop Time Status Last Admin Dose Admin Acetaminophen (Tylenol) 650 mg Q4H PRN ORAL for pain and fever 08/02/18 02:45 09/01/18 02:44 08/03/18 10:54 Albuterol/ Ipratropium (Albuterol/ Ipratropium) 3 ml Q4H PRN HHN Shortness of Breath 08/02/18 02:45 08/07/18 02:44 08/02/18 04:52 Albuterol/ Ipratropium (Albuterol/ Ipratropium) 3 ml Q6HRT HHN 08/02/18 19:00 08/07/18 18:59 08/03/18 07:30 Bisacodyl (Dulcolax) 10 mg DAILY PRN ORAL Constipation 08/02/18 09:00 09/01/18 08:59 Escitalopram Oxalate (Lexapro) 10 mg DAILY ORAL 08/02/18 09:00 09/01/18 08:59 08/03/18 08:05 Furosemide (Lasix) 20 mg DAILY ORAL 08/02/18 09:00 09/01/18 08:59 08/03/18 08:05 Heparin Sodium (Porcine) (Heparin 5000 units/ml) 5,000 units EVERY 12 HOURS SUBQ 08/02/18 21:00 09/01/18 20:59 08/03/18 08:07 Hydralazine HCl (Apresoline) 10 mg Q6H PRN ORAL for SBP >160 08/02/18 02:45 09/01/18 02:44 Levothyroxine Sodium (Synthroid) 200 mcg ACBREAKFAST ORAL 08/02/18 06:30 09/01/18 06:29 08/03/18 05:50 Magnesium Hydroxide (Mom) 30 ml DAILY PRN ORAL Constipation 08/02/18 02:45 09/01/18 02:44 Olanzapine (ZyPREXA) 5 mg BEDTIME ORAL 08/02/18 21:00 09/01/18 20:59 08/02/18 21:47 Piperacillin Sod/ Tazobactam Sod 3.375 gm/Dextrose 110 ml @ 27.5 mls/hr EVERY 8 HOURS IVPB 08/02/18 14:00 08/07/18 13:59 08/03/18 05:50 Potassium Chloride (K-Dur) 20 meq DAILY ORAL 08/02/18 09:00 09/01/18 08:59 08/03/18 08:05 Prednisone (predniSONE) 40 mg DAILY ORAL 08/03/18 09:00 09/02/18 08:59 08/03/18 08:08 Seth Blackwell MD Aug 03, 2018 11:58
[2018-08-03 12:00] VITALS: BP 122/74
--- NOTE | 2018-08-03 14:27 | NUR ---
ST NOTE: BEDSIDE SWALLOW EVAL RECEIVED BEDSIDE SWALLOW EVAL CHART REVIEWED PRIOR THE EVALUATION PT IS A 78-YEAR-OLD V[employer]-SPE[employer]ING FEMALE WHO WAS ADMITTED DUE TO MULTI-LOBAR PNA. DYSPHAGIA RISK FACTORS: H/O DEMENTIA, COPD, HEART FAILURE, PSYCH(MOOD DISORDER, MAJOR DEPRESSIVE DISORDER, SCHIZOPHRENIA WITH BEHAVIORAL ISSUE), H/O ACUTE RESP FAILURE, HEART FAILURE, H/O G-TUBE(IN 2016), DMII, HTN, H/O LUNG NODULES, POSS URI VS BRONCHITIS. PER CXR: NO ACUTE FINDING PER LUNG SCAN: There is elevation of the right hemidiaphragm, also documented on prior chest radiograph. Perfusion is somewhat heterogeneous, but no definite segmental or subsegmental perfusion defects are demonstrated and there is no evidence of perfusion/aerosol mismatch. PLOF: PT RESIDES AT NURSING FACILITY. PER CHART, PT WAS ON REGULAR WITH THIN LIQUIDS DIET. PER PT'S POLST: FULL CODE, OKAY WITH LONG-TERM ARTIFICIAL NUTRITION, INCLUDING FEEDING TUBES. CURRENT STATUS: PT SEEN AT BEDSIDE IN AM. ALERT, COOPERATIVE, ABLE TO FOLLOW SIMPLE DIRECTIONS. PT WITH NC(4L), OXYGEN LEVEL: 93-99%. [employer] STAFF ALSO AT BEDSIDE TO EXPLAIN PT RE: BEDSIDE SWALLOW EVAL GIVEN PO TRIALS: THIN(CUP-SELF), PUREE(TSP) AND CRACKER X2, WHOLE PILLS X 2 INITIAL IMPRESSION: GOOD DENTITION. GOOD LABIAL AND LINGUAL MOVEMENT AND STRENGTH. GOOD ORAL TRANSIT TIME AND OROPHARYNGEAL TRANSIT TIME, ADEQUATE LARYNGEAL ELEVATION, NO OVERT S/S OF ASPIRATION. OVERALL, PT'S SWALLOWING SEEMS FUNCTIONAL. DUE TO PT HAS POSS PNA AND H/O DEMENTIA, PT HAS RISK FOR ASPIRATION. RECOMMENDATIONS: 1. CONTINUE ORAL DIET. UPGRADE PT'S DIET TO SOFT, EASY CHEW WITH THIN LIQUIDS. 2. STRICT ASPIRATION PRECAUTIONS WITH DIRECT SUPERVISION. 3. SKILLED ST TO FOLLOW UP. VIDEOSWALLOW STUDY IF NEEDED IP OR OP. (DO NOT HOLD UP THE DISCHARGE. D/W PT AND RNRIC. POSTED ASPIRATION PRECAUTIONS SIGN.
--- NOTE | 2018-08-03 15:57 | Consultation ---
History of Present Illness General Chief Complaint: Flu Like Symptoms Present Illness Allergies: Coded Allergies: No Known Allergies (Unverified , 07/24/15) Medication History Scheduled Bisacodyl* (Dulcolax*), 10 MG RC PRN, (Reported) Escitalopram Oxalate* (Lexapro*), 10 MG ORAL DAILY, (Reported) Furosemide* (Lasix*), 20 MG PO DAILY, (Reported) Levothyroxine Sodium* (Levothyroxine Sodium*), 200 MCG PO DAILY, (Reported) Olanzapine* (Zyprexa*), 5 MG PO BID, (Reported) Potassium Chloride (Potassium Chloride), 20 MEQ ORAL DAILY, (Reported) Scheduled PRN Acetaminophen* (Acetaminophen 325MG Tablet*), 650 MG ORAL Q4H PRN for for pain and fever, (Reported) Hydralazine Hcl* (Hydralazine Hcl*), 10 MG PO EVERY 6 HOURS PRN for for SBP >160 , (Reported) Miscellaneous Medications Calcium Carbonate (Calci-Chew), 500 MG PO, (Reported) Magnesium Hydroxide* (Milk Of Magnesia*), 30 ML ORAL, (Reported) Patient History Healthcare decision maker Resuscitation status Advanced Directive on File Physical Exam Last 24 Hour Vital Signs Date Time Temp Pulse Resp B/P (MAP) Pulse Ox O2 Delivery O2 Flow Rate FiO2 08/03/18 12:45 74 16 94 Room Air 21 08/03/18 12:00 97.3 70 17 122/74 (90) 97 08/03/18 12:00 67 08/03/18 09:00 Nasal Cannula 4.0 08/03/18 08:00 97.0 85 17 118/62 (80) 93 08/03/18 08:00 81 08/03/18 07:40 69 18 99 Room Air 21 08/03/18 07:30 66 16 Room Air 21 08/03/18 07:30 66 16 99 Nasal Cannula 2.0 28 08/03/18 04:00 98.0 74 20 105/70 (82) 96 08/03/18 04:00 74 08/03/18 01:03 Nasal Cannula 2.0 28 08/03/18 01:02 Nasal Cannula 2.0 28 08/03/18 00:00 86 08/03/18 00:00 98.4 81 20 141/80 (100) 95 08/02/18 21:00 Nasal Cannula 4.0 08/02/18 20:05 78 20 98 Room Air 21 08/02/18 20:00 98.2 80 20 124/66 (85) 94 08/02/18 20:00 78 08/02/18 19:59 75 20 93 Room Air 21 08/02/18 19:59 75 18 Room Air 21 08/02/18 16:00 91 08/02/18 16:00 98.2 80 18 126/66 (86) 95 Intake and Output 08/02/18 08/03/18 19:00 07:00 Intake Total 360 ml Balance 360 ml Intake Oral 360 ml # Voids 3 2 Laboratory Tests Test 08/02/18 17:05 08/02/18 20:45 D-Dimer 1.09 mg/L FEU (0.00-0.49) H Arterial Blood pH 7.387 (7.350-7.450) Arterial Blood Partial Pressure CO2 45.5 mmHg (35.0-45.0) H Arterial Blood Partial Pressure O2 70.1 mmHg (75.0-100.0) L Arterial Blood HCO3 26.7 mmol/L (22.0-26.0) H Arterial Blood Oxygen Saturation 93.3 % (95-100) L Arterial Blood Base Excess 1.3 (-2-2) Eder Test Positive Height (Feet): 5 Height (Inches): 5.00 Weight (Pounds): 162 Medications Current Medications Medications (Trade) Dose Ordered Sig/Jad Route PRN Reason Start Time Stop Time Status Last Admin Dose Admin Acetaminophen (Tylenol) 650 mg Q4H PRN ORAL for pain and fever 08/02/18 02:45 09/01/18 02:44 08/03/18 10:54 Albuterol/ Ipratropium (Albuterol/ Ipratropium) 3 ml Q4H PRN HHN Shortness of Breath 08/02/18 02:45 08/07/18 02:44 08/02/18 04:52 Albuterol/ Ipratropium (Albuterol/ Ipratropium) 3 ml Q6HRT HHN 08/02/18 19:00 08/07/18 18:59 08/03/18 12:44 Bisacodyl (Dulcolax) 10 mg DAILY PRN ORAL Constipation 08/02/18 09:00 09/01/18 08:59 Escitalopram Oxalate (Lexapro) 10 mg DAILY ORAL 08/02/18 09:00 09/01/18 08:59 08/03/18 08:05 Furosemide (Lasix) 20 mg DAILY ORAL 08/02/18 09:00 09/01/18 08:59 08/03/18 08:05 Heparin Sodium (Porcine) (Heparin 5000 units/ml) 5,000 units EVERY 12 HOURS SUBQ 08/02/18 21:00 09/01/18 20:59 08/03/18 08:07 Hydralazine HCl (Apresoline) 10 mg Q6H PRN ORAL for SBP >160 08/02/18 02:45 09/01/18 02:44 Levothyroxine Sodium (Synthroid) 200 mcg ACBREAKFAST ORAL 08/02/18 06:30 09/01/18 06:29 08/03/18 05:50 Magnesium Hydroxide (Mom) 30 ml DAILY PRN ORAL Constipation 08/02/18 02:45 09/01/18 02:44 Olanzapine (ZyPREXA) 5 mg BEDTIME ORAL 08/02/18 21:00 09/01/18 20:59 08/02/18 21:47 Piperacillin Sod/ Tazobactam Sod 3.375 gm/Dextrose 110 ml @ 27.5 mls/hr EVERY 8 HOURS IVPB 08/02/18 14:00 08/07/18 13:59 08/03/18 13:12 Potassium Chloride (K-Dur) 20 meq DAILY ORAL 08/02/18 09:00 09/01/18 08:59 08/03/18 08:05 Prednisone (predniSONE) 40 mg DAILY ORAL 08/03/18 09:00 09/02/18 08:59 08/03/18 08:08 Assessment/Plan Problem List: (1) encephalopathy due to toxin (2) Dementia with behavioral disturbance ICD Codes: F03.91 - Unspecified dementia with behavioral disturbance SNOMED: 8947259455184 Pily Galo MD Aug 03, 2018 15:57
[2018-08-03 16:00] VITALS: BP 126/79
--- NOTE | 2018-08-03 17:06 | Diagnostic Imaging Report ---
Clinical Indication: Shortness of breath, leukocytosis Technique: Spiral acquisitions obtained through the chest. No IV contrast utilized, referring physician request. Multiplanar reconstructions generated. Total dose length product 808.89 mGycm. CTDIvol(s) 25.48 mGy. Dose reduction achieved using automated exposure control Comparison: 07/27/2015 Findings:Exam is somewhat limited due to respiratory motion artifact. Previously demonstrated right lower lobe consolidation is no longer evident. There is some atelectasis and/or scarring of the right lower lobe noted. The right upper lobe is clear. There is some lingular scarring again demonstrated. Some dependent/compressive atelectatic changes are demonstrated in the left lower lobe. No dense consolidation. No effusions. No definite masses. There is a very questionable 2 mm nodule in the inferior right upper lobe, image 22 series 5. This possibly although not definitively represents the nodule described on the previous exam, if so unchanged. No other nodules are demonstrated. The heart size is normal. No evidence of pericardial effusion. No mediastinal or hilar mass or adenopathy. The included portion of the thyroid is unremarkable. Unremarkable esophagus. The bones demonstrate a few healed bilateral rib fracture deformities. No acute bony abnormality. Previously demonstrated T12 superior endplate compression deformity is again noted. The included upper abdominal anatomy demonstrates interim removal of previously demonstrated gastrostomy. The gallbladder appears to be surgically absent. Prominent right upper quadrant bowel loops are noted. This appears similar to the previous exam. Impression: Right lower lobe atelectasis and or scarring, lingular atelectasis, and compressive left lower lobe atelectatic changes. No acute pulmonary process otherwise Questionable 2 mm inferior right lower lobe nodule, may be the nodule described on previous study; if so unchanged. No new or enlarging nodules are demonstrated otherwise. Old healed rib fractures again demonstrated. Stable superior endplate compression fracture deformity of T12 Prominent right upper quadrant bowel loops incidentally noted, also demonstrated previously Evidence of prior cholecystectomy Interim gastrostomy removal The CT scanner at [facility] is accredited by the [employer] and the scans are performed using protocols designed to limit radiation exposure to as low as reasonably achievable to attain images of sufficient resolution adequate for diagnostic evaluation.
--- NOTE | 2018-08-03 19:56 | NUR ---
HAND-OFF: Report given to DAVID Hannah.
--- NOTE | 2018-08-03 19:57 | NUR ---
NURSE NOTES: Got report from Avelina HERNANDEZ. Pt in stable condition. Denies any pain. No s/s of distress noted. Pt resting in bed comfortably. Bed in low and locked position, call light within reach, bedside table within reach. continue to monitor.
[2018-08-03 20:00] VITALS: BP 100/64
--- NOTE | 2018-08-03 21:07 | General Progress Note ---
Assessment/Plan Problem List: (1) Upper respiratory infection ICD Codes: J06.9 - Acute upper respiratory infection, unspecified SNOMED: 90056410 (2) Dyspnea ICD Codes: R06.00 - Dyspnea, unspecified SNOMED: 553923556 (3) Dementia with behavioral disturbance ICD Codes: F03.91 - Unspecified dementia with behavioral disturbance SNOMED: 6653705352982 (4) Pneumonia ICD Codes: J18.9 - Pneumonia, unspecified organism SNOMED: 569664120 (5) BEHAVIORAL PROBLEMS Status: progressing Assessment/Plan pna improving psych patient not hypoxic cough is present Subjective ROS Limited/Unobtainable: Yes Allergies: Coded Allergies: No Known Allergies (Unverified , 07/24/15) Objective Last 24 Hour Vital Signs Date Time Temp Pulse Resp B/P (MAP) Pulse Ox O2 Delivery O2 Flow Rate FiO2 08/03/18 19:49 76 18 99 Room Air 21 08/03/18 19:41 74 18 Room Air 21 08/03/18 19:33 78 18 95 Room Air 21 08/03/18 16:00 69 08/03/18 16:00 97.4 76 18 126/79 (95) 94 08/03/18 12:55 74 16 98 Room Air 21 08/03/18 12:45 74 16 94 Room Air 21 08/03/18 12:00 97.3 70 17 122/74 (90) 97 08/03/18 12:00 67 08/03/18 09:00 Nasal Cannula 4.0 08/03/18 08:00 97.0 85 17 118/62 (80) 93 08/03/18 08:00 81 08/03/18 07:40 69 18 99 Room Air 21 08/03/18 07:30 66 16 Room Air 21 08/03/18 07:30 66 16 99 Nasal Cannula 2.0 28 08/03/18 04:00 98.0 74 20 105/70 (82) 96 08/03/18 04:00 74 08/03/18 01:03 Nasal Cannula 2.0 28 08/03/18 01:02 Nasal Cannula 2.0 28 08/03/18 00:00 86 08/03/18 00:00 98.4 81 20 141/80 (100) 95 Intake and Output 08/02/18 08/03/18 19:00 07:00 Intake Total 360 ml Balance 360 ml Intake Oral 360 ml # Voids 3 2 Height (Feet): 5 Height (Inches): 5.00 Weight (Pounds): 162 EENT: PERRL/EOMI Cardiovascular: normal rate Respiratory/Chest: lungs clear Mimi Carroll MD Aug 03, 2018 21:07
--- NOTE | 2018-08-03 23:32 | General Progress Note ---
Assessment/Plan Problem List: (1) Dementia with behavioral disturbance ICD Codes: F03.91 - Unspecified dementia with behavioral disturbance SNOMED: 4283235949193 (2) encephalopathy due to toxin Subjective Neurologic/Psychiatric: Reports: anxiety, depressed, emotional problems Allergies: Coded Allergies: No Known Allergies (Unverified , 07/24/15) Objective Last 24 Hour Vital Signs Date Time Temp Pulse Resp B/P (MAP) Pulse Ox O2 Delivery O2 Flow Rate FiO2 08/03/18 21:38 97.4 08/03/18 21:00 Nasal Cannula 4.0 08/03/18 20:00 98.0 89 20 100/64 (76) 95 08/03/18 19:49 76 18 99 Room Air 21 08/03/18 19:41 74 18 Room Air 21 08/03/18 19:33 78 18 95 Room Air 21 08/03/18 16:00 69 08/03/18 16:00 97.4 76 18 126/79 (95) 94 08/03/18 12:55 74 16 98 Room Air 21 08/03/18 12:45 74 16 94 Room Air 21 08/03/18 12:00 97.3 70 17 122/74 (90) 97 08/03/18 12:00 67 08/03/18 09:00 Nasal Cannula 4.0 08/03/18 08:00 97.0 85 17 118/62 (80) 93 08/03/18 08:00 81 08/03/18 07:40 69 18 99 Room Air 21 08/03/18 07:30 66 16 Room Air 21 08/03/18 07:30 66 16 99 Nasal Cannula 2.0 28 08/03/18 04:00 98.0 74 20 105/70 (82) 96 08/03/18 04:00 74 08/03/18 01:03 Nasal Cannula 2.0 28 08/03/18 01:02 Nasal Cannula 2.0 28 08/03/18 00:00 86 08/03/18 00:00 98.4 81 20 141/80 (100) 95 Intake and Output 08/02/18 08/03/18 19:00 07:00 Intake Total 360 ml Balance 360 ml Intake Oral 360 ml # Voids 3 2 Height (Feet): 5 Height (Inches): 5.00 Weight (Pounds): 162 General Appearance: alert Farhadi,Pantea MD Aug 03, 2018 23:32
[2018-08-04] VITALS: BP 107/55
[2018-08-04] MEDS: Albuterol/Ipratropium 3ml neb HHN SCH ×4 (01:00→19:32)
[2018-08-04 04:20] VITALS: BP 118/68
[2018-08-04] MEDS: Piperacillin/Tazobactam 3.375 GM in D5W 110 ML IVPB SCH ×3 (06:00→21:32)
[2018-08-04 08:00] VITALS: BP 120/71
[2018-08-04] MEDS: Heparin 5000 units/ml inj SUBQ SCH ×2 (09:16→20:57)
--- NOTE | 2018-08-04 11:26 | NUR ---
CASE MANAGEMENT:REVIEW 08/04/18 SI: PNA. COPD 97.4 74 20 120/71 98% ON 4L IS: IV ZOSYN Q8HRS PREDNISONE PO QD DUONEB HHN Q6HRS RTC : TELEMETRY STATUS DCP: [facility]
[2018-08-04 12:00] VITALS: BP 119/79
--- NOTE | 2018-08-04 12:16 | Pulmonology Progress Note ---
Assessment/Plan Problems: (1) COPD exacerbation (2) Pneumonia (3) BEHAVIORAL PROBLEMS Assessment/Plan ASSESSMENT: The patient is a 78-year-old female, half-way resident with presumed history of COPD, schizophrenia, hypertension, hyperlipidemia, diabetes , and hypothyroidism, presenting with respiratory illness, possible exacerbation of underlying COPD. She has mild leukocytosis, but does not otherwise appear infected from a pulmonary standpoint. Prior CT in 2016 showed some hilar adenopathy and pulmonary parenchymal nodularity for which a followup CT has not been done. PROBLEM LIST: 1. COPD with acute exacerbation. 2. Prior history of lung nodules. 3. Hilar adenopathy. 4. Old granulomatous disease. 5. Possible URI versus bronchitis, doubt pneumonia. 6. CHF. 7. Schizophrenia. 8. Hypertension. 9. Hyperlipidemia. 10. Hypothyroidism. 11. Diabetes. 12. Elevated D-dimer with neg DUPLEX and VQ TREATMENT PLAN: 1. Optimize pulmonary hygiene/mobilize as tolerated. 2. PRN O2 to keep saturations greater than 90%. 3. Prednisone 40 mg p.o. daily (today is day #3). 4. Xziit-kqu-snnan and p.r.n. DuoNebs. 5. Antibiotics per ID. 6. CT chest reviewed 7. Diet per HOME HEALTH NURSE LICENSED PRACTICAL with STRICT aspiration precaution. 8. Monitor volumes and renal function. 9. DVT prophylaxis, heparin subcutaneous. 10. The patient is a Full Code. Subjective Allergies: Coded Allergies: No Known Allergies (Unverified , 07/24/15) Subjective AFVSS on 2-4L CT reviewed No SOB less cough clear phlegm no wheezing no CP no FC Objective Last 24 Hour Vital Signs Date Time Temp Pulse Resp B/P (MAP) Pulse Ox O2 Delivery O2 Flow Rate FiO2 08/04/18 09:00 Nasal Cannula 4.0 08/04/18 08:00 97.4 74 20 120/71 (87) 98 08/04/18 08:00 72 08/04/18 08:00 Room Air 08/04/18 07:59 Nasal Cannula 08/04/18 04:20 78 08/04/18 04:20 97.2 79 20 118/68 (85) 98 08/04/18 01:33 Room Air 2.0 28 08/04/18 01:32 67 20 96 Nasal Cannula 2.0 28 08/04/18 00:00 97.0 88 20 107/55 (72) 98 08/04/18 00:00 78 08/03/18 21:38 97.4 08/03/18 21:00 Nasal Cannula 4.0 08/03/18 20:00 80 08/03/18 20:00 98.0 89 20 100/64 (76) 95 08/03/18 19:49 76 18 99 Room Air 21 08/03/18 19:41 74 18 Room Air 21 08/03/18 19:33 78 18 95 Room Air 21 08/03/18 16:00 69 08/03/18 16:00 97.4 76 18 126/79 (95) 94 08/03/18 12:55 74 16 98 Room Air 21 08/03/18 12:45 74 16 94 Room Air 21 Intake and Output 08/03/18 08/04/18 18:59 06:59 Intake Total 360 ml 120 ml Balance 360 ml 120 ml Intake Oral 360 ml 120 ml # Voids 4 4 General Appearance: no acute distress, cachetic HEENT: normocephalic, atraumatic, anicteric, mucous membranes moist Respiratory/Chest: chest wall non-tender, lungs clear, normal breath sounds, no respiratory distress, no accessory muscle use Cardiovascular: normal peripheral pulses, normal rate, regular rhythm Abdomen: normal bowel sounds, soft, non tender, no organomegaly, non distended , no mass Extremities: no cyanosis, no clubbing, no edema Microbiology Date/Time Source Procedure Growth Status 08/01/18 20:20 Blood Blood Culture - Preliminary NO GROWTH AFTER 48 HOURS Resulted 08/01/18 20:15 Blood Blood Culture - Preliminary NO GROWTH AFTER 48 HOURS Resulted 08/02/18 01:30 Nasal Nares MRSA Culture - Final NO METHICILLIN RESISTANT STAPH AUREUS... Complete 08/01/18 20:15 Nasal Nares Influenza Types A,B Antigen (LANDY) - Final Complete 08/02/18 01:30 Rectum - Final NO CARBAPENEM-RESISTANT ENTEROBACTERI... Complete 08/02/18 01:30 Rectum VRE Culture - Final Enterococcus Faecalis - Vre Complete Current Medications Medications (Trade) Dose Ordered Sig/Jad Route PRN Reason Start Time Stop Time Status Last Admin Dose Admin Acetaminophen (Tylenol) 650 mg Q4H PRN ORAL for pain and fever 08/02/18 02:45 09/01/18 02:44 08/03/18 21:07 Albuterol/ Ipratropium (Albuterol/ Ipratropium) 3 ml Q4H PRN HHN Shortness of Breath 08/02/18 02:45 08/07/18 02:44 08/02/18 04:52 Albuterol/ Ipratropium (Albuterol/ Ipratropium) 3 ml Q6HRT HHN 08/02/18 19:00 08/07/18 18:59 08/03/18 19:33 Bisacodyl (Dulcolax) 10 mg DAILY PRN ORAL Constipation 08/02/18 09:00 09/01/18 08:59 Escitalopram Oxalate (Lexapro) 10 mg DAILY ORAL 08/02/18 09:00 09/01/18 08:59 08/04/18 09:13 Furosemide (Lasix) 20 mg DAILY ORAL 08/02/18 09:00 09/01/18 08:59 08/04/18 09:14 Heparin Sodium (Porcine) (Heparin 5000 units/ml) 5,000 units EVERY 12 HOURS SUBQ 08/02/18 21:00 09/01/18 20:59 08/04/18 09:16 Hydralazine HCl (Apresoline) 10 mg Q6H PRN ORAL for SBP >160 08/02/18 02:45 09/01/18 02:44 Levothyroxine Sodium (Synthroid) 200 mcg ACBREAKFAST ORAL 08/02/18 06:30 09/01/18 06:29 08/04/18 06:30 Magnesium Hydroxide (Mom) 30 ml DAILY PRN ORAL Constipation 08/02/18 02:45 09/01/18 02:44 Olanzapine (ZyPREXA) 5 mg BEDTIME ORAL 08/02/18 21:00 09/01/18 20:59 08/03/18 21:06 Piperacillin Sod/ Tazobactam Sod 3.375 gm/Dextrose 110 ml @ 27.5 mls/hr EVERY 8 HOURS IVPB 08/02/18 14:00 08/07/18 13:59 08/04/18 06:00 Potassium Chloride (K-Dur) 20 meq DAILY ORAL 08/02/18 09:00 09/01/18 08:59 08/04/18 09:14 Prednisone (predniSONE) 40 mg DAILY ORAL 08/03/18 09:00 09/02/18 08:59 08/04/18 09:13 Roberto Jsohua MD Aug 04, 2018 12:16
--- NOTE | 2018-08-04 13:51 | Infectious Diseases Prog Note ---
Assessment/Plan Assessment/Plan A; Pneumonia COPD Dementia Psychosis HPN Hypothyroidism P; Continue Zosyn will f/u cultures Subjective ROS Limited/Unobtainable: Yes Respiratory: Reports: productive cough Gastrointestinal/Abdominal: Reports: no symptoms Genitourinary: Reports: no symptoms Allergies: Coded Allergies: No Known Allergies (Unverified , 07/24/15) Objective Vital Signs Last 24 Hour Vital Signs Date Time Temp Pulse Resp B/P (MAP) Pulse Ox O2 Delivery O2 Flow Rate FiO2 08/04/18 13:36 81 18 93 Nasal Cannula 2.0 28 08/04/18 12:00 71 08/04/18 12:00 97.4 71 18 119/79 (92) 98 08/04/18 09:00 Nasal Cannula 4.0 08/04/18 08:00 97.4 74 20 120/71 (87) 98 08/04/18 08:00 72 08/04/18 08:00 Room Air 08/04/18 07:59 Nasal Cannula 08/04/18 04:20 78 08/04/18 04:20 97.2 79 20 118/68 (85) 98 08/04/18 01:33 Room Air 2.0 28 08/04/18 01:32 67 20 96 Nasal Cannula 2.0 28 08/04/18 00:00 97.0 88 20 107/55 (72) 98 08/04/18 00:00 78 08/03/18 21:38 97.4 08/03/18 21:00 Nasal Cannula 4.0 08/03/18 20:00 80 08/03/18 20:00 98.0 89 20 100/64 (76) 95 08/03/18 19:49 76 18 99 Room Air 21 08/03/18 19:41 74 18 Room Air 21 08/03/18 19:33 78 18 95 Room Air 21 08/03/18 16:00 69 08/03/18 16:00 97.4 76 18 126/79 (95) 94 Height (Feet): 5 Height (Inches): 5.00 Weight (Pounds): 162 General Appearance: no acute distress HEENT: mucous membranes moist Respiratory/Chest: lungs clear Cardiovascular: normal rate Abdomen: soft, non tender Extremities: no edema Neurologic/Psychiatric: alert, responsive Microbiology Date/Time Source Procedure Growth Status 08/01/18 20:20 Blood Blood Culture - Preliminary NO GROWTH AFTER 48 HOURS Resulted 08/01/18 20:15 Blood Blood Culture - Preliminary NO GROWTH AFTER 48 HOURS Resulted 08/02/18 01:30 Nasal Nares MRSA Culture - Final NO METHICILLIN RESISTANT STAPH AUREUS... Complete 08/01/18 20:15 Nasal Nares Influenza Types A,B Antigen (LANDY) - Final Complete 08/02/18 01:30 Rectum - Final NO CARBAPENEM-RESISTANT ENTEROBACTERI... Complete 08/02/18 01:30 Rectum VRE Culture - Final Enterococcus Faecalis - Vre Complete Current Medications Medications (Trade) Dose Ordered Sig/Jad Route PRN Reason Start Time Stop Time Status Last Admin Dose Admin Acetaminophen (Tylenol) 650 mg Q4H PRN ORAL for pain and fever 08/02/18 02:45 09/01/18 02:44 08/03/18 21:07 Albuterol/ Ipratropium (Albuterol/ Ipratropium) 3 ml Q4H PRN HHN Shortness of Breath 08/02/18 02:45 08/07/18 02:44 08/02/18 04:52 Albuterol/ Ipratropium (Albuterol/ Ipratropium) 3 ml Q6HRT HHN 08/02/18 19:00 08/07/18 18:59 08/04/18 13:36 Bisacodyl (Dulcolax) 10 mg DAILY PRN ORAL Constipation 08/02/18 09:00 09/01/18 08:59 Escitalopram Oxalate (Lexapro) 10 mg DAILY ORAL 08/02/18 09:00 09/01/18 08:59 08/04/18 09:13 Furosemide (Lasix) 20 mg DAILY ORAL 08/02/18 09:00 09/01/18 08:59 08/04/18 09:14 Heparin Sodium (Porcine) (Heparin 5000 units/ml) 5,000 units EVERY 12 HOURS SUBQ 08/02/18 21:00 09/01/18 20:59 08/04/18 09:16 Hydralazine HCl (Apresoline) 10 mg Q6H PRN ORAL for SBP >160 08/02/18 02:45 09/01/18 02:44 Levothyroxine Sodium (Synthroid) 200 mcg ACBREAKFAST ORAL 08/02/18 06:30 09/01/18 06:29 08/04/18 06:30 Magnesium Hydroxide (Mom) 30 ml DAILY PRN ORAL Constipation 08/02/18 02:45 09/01/18 02:44 Olanzapine (ZyPREXA) 5 mg BEDTIME ORAL 08/02/18 21:00 09/01/18 20:59 08/03/18 21:06 Piperacillin Sod/ Tazobactam Sod 3.375 gm/Dextrose 110 ml @ 27.5 mls/hr EVERY 8 HOURS IVPB 08/02/18 14:00 08/07/18 13:59 08/04/18 06:00 Potassium Chloride (K-Dur) 20 meq DAILY ORAL 08/02/18 09:00 09/01/18 08:59 08/04/18 09:14 Prednisone (predniSONE) 40 mg DAILY ORAL 08/03/18 09:00 09/02/18 08:59 08/04/18 09:13 Seth Blackwell MD Aug 04, 2018 13:51
[2018-08-04 16:00] VITALS: BP 124/74
--- NOTE | 2018-08-04 18:48 | NUR ---
NURSE NOTES: PT REMAINS FREE OF INJURIES DURING THIS SHIFT.NO ACUTE DISTRESS NOTED AT THIS TIME. WILL CONT TO MONITOR.
--- NOTE | 2018-08-04 19:10 | NUR ---
HAND-OFF: Report given to .PAUL DIXON RN.
--- NOTE | 2018-08-04 19:30 | NUR ---
NURSE NOTES: Received report from DAVID Smith. Patient is awake lying semi-marshall's; resting comfortably. No signs of acute distress noted; denies pain at this time. AOx3; able to make needs known. Primarily Hungarian speaking. Checked IV site; patent and flushed. No erythema, bleeding, or infiltration noted. Bed at lowest position, brakes on, siderails up x3. Call light within reach. Will continue to monitor.
[2018-08-04 20:00] VITALS: BP 125/73
--- NOTE | 2018-08-04 21:07 | General Progress Note ---
Assessment/Plan Problem List: (1) Upper respiratory infection ICD Codes: J06.9 - Acute upper respiratory infection, unspecified SNOMED: 05300128 (2) Dyspnea ICD Codes: R06.00 - Dyspnea, unspecified SNOMED: 934925194 (3) Dementia with behavioral disturbance ICD Codes: F03.91 - Unspecified dementia with behavioral disturbance SNOMED: 9697446914133 (4) Pneumonia ICD Codes: J18.9 - Pneumonia, unspecified organism SNOMED: 256061438 (5) BEHAVIORAL PROBLEMS Status: progressing Assessment/Plan pna improving abx per id no wheezing afebrile Subjective Respiratory: Reports: cough, shortness of breath Allergies: Coded Allergies: No Known Allergies (Unverified , 07/24/15) Objective Last 24 Hour Vital Signs Date Time Temp Pulse Resp B/P (MAP) Pulse Ox O2 Delivery O2 Flow Rate FiO2 08/04/18 20:32 73 18 93 Nasal Cannula 2.0 28 08/04/18 16:00 98.2 79 20 124/74 (91) 97 08/04/18 16:00 85 08/04/18 13:46 88 20 99 Room Air 21 08/04/18 13:36 81 18 93 Nasal Cannula 2.0 28 08/04/18 12:00 71 08/04/18 12:00 97.4 71 18 119/79 (92) 98 08/04/18 09:00 Nasal Cannula 4.0 08/04/18 08:00 97.4 74 20 120/71 (87) 98 08/04/18 08:00 72 08/04/18 08:00 Room Air 08/04/18 07:59 Nasal Cannula 08/04/18 04:20 78 08/04/18 04:20 97.2 79 20 118/68 (85) 98 08/04/18 01:33 Room Air 2.0 28 08/04/18 01:32 67 20 96 Nasal Cannula 2.0 28 08/04/18 00:00 97.0 88 20 107/55 (72) 98 08/04/18 00:00 78 08/03/18 21:38 97.4 Intake and Output 08/03/18 08/04/18 19:00 07:00 Intake Total 360 ml 147.5 ml Balance 360 ml 147.5 ml Intake Oral 360 ml 120 ml IV Total 27.5 ml # Voids 4 4 Height (Feet): 5 Height (Inches): 5.00 Weight (Pounds): 162 EENT: TMs normal Neck: supple Cardiovascular: normal rate Respiratory/Chest: lungs clear Mimi Carroll MD Aug 04, 2018 21:07
[2018-08-05] VITALS: BP 147/77
[2018-08-05] MEDS: Albuterol/Ipratropium 3ml neb HHN SCH ×2 (01:50→07:50)
[2018-08-05 04:00] VITALS: BP 110/60
[2018-08-05] MEDS: Piperacillin/Tazobactam 3.375 GM in D5W 110 ML IVPB SCH (06:05)
--- NOTE | 2018-08-05 07:31 | NUR ---
HAND-OFF: Report given to DAVID Frost. Patient is awake lying high marshall's eating breakfast. In stable condition.
--- NOTE | 2018-08-05 07:32 | NUR ---
NURSE NOTES: Report received from DAVID Sylvester. Pt is sitting in her bed, eating breakfast with no signs of distress. Pt is A+Ox4 and denies pain/SOB. Respirations are even and unlabored on room air. IV site is patent, intact, and saline locked. Bed is at lowest position, brakes engaged, two side rails up, bed alarm on. Call light and call light within reach. Pt is in stable condition at this time; will continue to monitor.
--- NOTE | 2018-08-05 07:57 | NUR ---
NURSE NOTES: Per RT, Patient refused respiratory treatment.
[2018-08-05 08:00] VITALS: BP 136/74
[2018-08-05] MEDS: Heparin 5000 units/ml inj SUBQ SCH (08:56)
--- NOTE | 2018-08-05 10:19 | NUR ---
DISCHARGE PLAN FAXED CLINICALS TO [facility] T:[phone] F: [phone] await room assignment
--- NOTE | 2018-08-05 11:10 | NUR ---
DISCHARGE PATIENT WILL DISCHARGE TO [facility] ROOM 220C SKILLED T: [phone] FOR NURSE TO NURSE REPORT [facility] HAS BEEN ARRANGED FOR [address] [employer] REPRES[employer]ATIVE SPOKE WITH DAUGHTERREMBERTO AT T: [phone]...SHE IS IN AGREEMENT WITH DISCHARGE PLAN
--- NOTE | 2018-08-05 11:50 | NUR ---
NURSE NOTES: Patient is discharged SNF ([facility]) per Dr. Wood' order. Called and report given to DAVID Franklin. Patient is in stable condition. Patient needs to resume all home meds plus antibiotic from Dr. Mindy Blackwell and all hospital medications will be discontinued. Called and reported to patient's daughter.
[2018-08-05 12:00] VITALS: BP 145/79
--- NOTE | 2018-08-05 13:10 | NUR ---
NURSE NOTES: Patient discharged from IV and Heart monitor, returned the monitor to security monitor. All discharge instruction explained to patient. Patient left the hospital with [facility] in stable condition.
--- NOTE | 2018-08-05 13:55 | Cardiology Report ---
APPROVED REPORT EXAM: Two-dimensional and M-mode echocardiogram with Doppler and color Doppler. INDICATION Congestive Heart Failure M-Mode DIMENSIONS IVSd0.9 (0.7-1.1cm)Left Atrium (MM)2.7 (1.6-4.0cm) LVDd4.3 (3.5-5.6cm)Aortic Root2.7 (2.0-3.7cm) PWd1.0 (0.7-1.1cm)Aortic Cusp Exc.1.9 (1.5-2.0cm) LVDs2.7 (2.5-4.0cm) PWs1.1 cm Normal left ventricular chamber size, hyperdynamic systolic function and wall motion to visualized extent. Left ventricular ejection fraction estimated to be 70-75 %. No evidence of left ventricular hypertrophy. No evidence of pericardial effusion. All other cardiac chamber sizes are within normal limits. Focal aortic valve sclerosis with adequate cusp excursion. Thickened mitral valve leaflets with normal excursion. Mitral annulus and aortic root calcification. Pulmonic valve not well visualized. Normal tricuspid valve structure. IVC measured at 1.5 cm with slight physiologic collapse A color flow and spectral Doppler study was performed and revealed: Trace to mild aortic regurgitation.. Trace mitral regurgitation. Mitral diastolic velocities suggest mild left ventricular diastolic dysfunction. Trace to mild tricuspid regurgitation. Tricuspid systolic velocities suggests peak right ventricular systolic pressure of 34 mmHg.
--- NOTE | 2018-08-05 16:21 | General Progress Note ---
Assessment/Plan Problem List: (1) encephalopathy due to toxin (2) Dementia with behavioral disturbance ICD Codes: F03.91 - Unspecified dementia with behavioral disturbance SNOMED: 5061533862673 Subjective Date patient seen: Aug 04, 2018 Neurologic/Psychiatric: Reports: anxiety, depressed Allergies: Coded Allergies: No Known Allergies (Unverified , 07/24/15) Subjective [employer] was down last night/late entry Objective Last 24 Hour Vital Signs Date Time Temp Pulse Resp B/P (MAP) Pulse Ox O2 Delivery O2 Flow Rate FiO2 08/05/18 12:00 98.3 73 20 145/79 (101) 92 08/05/18 09:00 Room Air 08/05/18 08:00 97.9 74 18 136/74 (94) 98 08/05/18 08:00 81 08/05/18 07:51 73 16 98 Room Air 21 08/05/18 04:00 73 08/05/18 04:00 97.7 78 20 110/60 (77) 92 08/05/18 00:00 73 08/05/18 00:00 97.5 82 20 147/77 (100) 92 08/04/18 21:00 Room Air 08/04/18 20:32 73 18 93 Nasal Cannula 2.0 28 08/04/18 20:00 81 08/04/18 20:00 97.2 78 20 125/73 (90) 94 Intake and Output 08/04/18 08/05/18 18:59 06:59 Intake Total 580.0 ml 910.0 ml Output Total 550 ml Balance 30.0 ml 910.0 ml Intake Oral 360 ml 800 ml IV Total 220.0 ml 110.0 ml Output Urine Total 550 ml # Voids 3 Height (Feet): 5 Height (Inches): 5.00 Weight (Pounds): 162 General Appearance: alert, agitated Pily Galo MD Aug 05, 2018 16:20
--- NOTE | 2018-08-08 11:15 | Discharge Summary ---
Discharge Summary Discharge Summary _ DATE OF ADMISSION: 08/01/2018 DATE OF DISCHARGE: 08/05/2018 DISCHARGED BY: Dr. Carroll REASON FOR ADMISSION: 78 years old female with past medical history of hypertension, CHF, coronary artery disease with history of [place], COPD, GERD, dysphagia, schizophrenia, dementia, bipolar disorder, resident of [facility], was found to have pneumonia on the chest x-ray done at the [facility] facility. Patient reported persistent cough and difficulty breathing. No reported fever or chills. No reported nausea or vomiting. Upon evaluation vital signs were stable. Laboratory workup revealed leukocytosis WBC 12.5. Stable hemoglobin hematocrit. Stable electrolytes and renal parameters. Albumin 2.7. Stable LFT. Urinalysis revealed +2 leukocyte esterase and few bacteria. EKG revealed sinus rhythm, no acute ischemic changes. Chest x-ray revealed no acute cardiopulmonary pathology. Patient admitted for further management for COPD exacerbation CONSULTANTS: pulmonary ID specialist Dr. Glez psychiatrist [facility] COURSE: Patient admitted to telemetry floor. Seasoning Mixer closely followed. Patient started on short course of oral steroids . Supplemental oxygen titrated to keep oximetry above 90%. Pulmonary toilet [id number]-[id number] and as needed provided with DuoNeb via hand- held nebulizing. ABG was stable on room air Broad-spectrum antibiotic provided as per ID list recommendation. Blood cultures were negative. Rapid influenza screen test was negative. Leukocytosis trending down ,no fevers. Per infectious disease specialist, patient patient have pneumonia. Seasoning Mixer argued, that patient have upper respiratory infection versus bronchitis and doubted pneumonia. CT of the chest revealed right lower lobe atelectasis and /or scarring, lingular atelectasis, and compressive left lower lobe atelectatic changes. No acute pulmonary process otherwise Questionable 2 mm inferior right lower lobe nodule, may be the nodule described on previous study; if so - unchanged. No new or enlarging nodules were demonstrated otherwise. Old healed rib fractures again demonstrated. Stable superior endplate compression fracture deformity of T12. Patient was noted to have elevated D-dimer -1.09. Venous duplex bilateral lower extremity did not reveal evidence of acute DVT. Subsequently patient undergone VQ scan, which revealed low probability for pulmonary emboli. Echocardiogram revealed preserved ejection fraction of 70-75% with no evidence of left ventricular hypertrophy. No evidence of wall motion abnormality. No evidence of pericardial effusion. Right ventricular systolic pressure of 34. Patient was on maintenance dose of Lasix. Volumes and cardiorenal parameters were closely monitored. DVT prophylaxis provided. Home medication continued. Blood pressure was closely monitored, remained stable. Bedside swallow evaluation revealed evidence of dysphagia. Diet texture provided as per speech therapist recommendation with strict aspiration precautions with direct supervision. Recommended video swallow study as inpatient or outpatient. Psychiatrist followed. Psychiatrist diagnosed patient with encephalopathy due to toxin and dementia with behavioral disturbances. Psychiatric medication regimen was optimized. Reality orientation and supportive therapy provided. 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 DISCHARGE INSTRUCTIONS: Patient was [facility] to the [facility] facility. Follow up with medical doctor at the facility. I have been assigned to dictate discharge summary for this account. I was not involved in the patient's management. Chata Queen NP Aug 08, 2018 11:15
== END 2018-08-05 13:14 | DRG 190 ==
LOC: EDBD 19:04 → EMR 20:09 → 2E 22:29 → EDBEDREQSVC 22:58 → EDBEDREQ 23:12
DX: J44.0 Chronic obstructive pulmonary disease with (acute) lower respiratory infection (principal); J18.9 Pneumonia, unspecified organism; G92 Toxic encephalopathy; F03.91 Unspecified dementia, unspecified severity, with behavioral disturbance; J44.1 Chronic obstructive pulmonary disease with (acute) exacerbation; E86.0 Dehydration; R59.0 Localized enlarged lymph nodes; I11.0 Hypertensive heart disease with heart failure; I50.9 Heart failure, unspecified; I10 Essential (primary) hypertension; E78.5 Hyperlipidemia, unspecified; E03.9 Hypothyroidism, unspecified; E11.9 Type 2 diabetes mellitus without complications; F20.9 Schizophrenia, unspecified
CPT/HCPCS: 36415; 36600; 71045; 71250; 78579; 78580; 80053; 81003; 82803; 85025; 85379; 86710; 87040; 87081; 93005; 93306; 93970; 94640; 94664; 96360; 99285; A9503; J7620; J8499

== ENCOUNTER 2019-11-29 16:01 | Inpatient (IN) | payer MEDICARE, OTHER ==
[2019-11-29] MEDS ORDERED: Vancomycin 1 GM in NS 275 ML IV ONE (16:15)
[2019-11-29] MEDS ORDERED: Cefepime HCl 2 GM in NS 110 ML IV ONE (16:15)
[2019-11-29] MEDS ORDERED: HYDROCORTISONE59 M1 TP (16:49)
[2019-11-29] MEDS ORDERED: BENADRYL25 MG ORAL (16:50)
[2019-11-29] MEDS ORDERED: Tums 500mg ORAL PRN (22:45)
[2019-11-29] MEDS ORDERED: Milk of Magnesia 30ml Ud ORAL PRN (22:45)
[2019-11-30] MEDS ORDERED: DULCOLAX10 MG RC ×2 (03:43→03:45)
[2019-11-30] MEDS ORDERED: BENADRYL ALLERG25 M1 PO (03:51)
[2019-11-30] MEDS ORDERED: CALCIUM CARBON500 M1 PO (03:55)
[2019-11-30] MEDS ORDERED: HYDROCORTISONE59 M1 TP (03:57)
[2019-11-30] MEDS ORDERED: LEVOTHYROXINE125 MCG ORAL (04:01)
[2019-11-30] MEDS ORDERED: POTASSIUM CHLO20 ME3 PO (04:13)
[2019-11-30] MEDS ORDERED: OLANZAPINE2.5 MG ORAL (04:13)
[2019-11-30] MEDS ORDERED: MOM30 ML ORAL (04:13)
[2019-11-30] MEDS: Levothyroxine 125mcg tab ORAL SCH (05:50)
[2019-11-30] MEDS: OLANZapine 2.5mg tab ORAL SCH ×2 (08:16→18:00)
[2019-11-30] MEDS: Fluconazole 100mg tab ORAL SCH (12:24)
[2019-12-01] MEDS: Levothyroxine 125mcg tab ORAL SCH (06:13)
[2019-12-01] MEDS: OLANZapine 2.5mg tab ORAL SCH ×2 (08:16→18:01)
[2019-12-01] MEDS: Fluconazole 100mg tab ORAL SCH (08:16)
[2019-12-01] MEDS ORDERED: FLUCONAZOLE100 MG ORAL (15:38)
== END 2019-12-01 18:40 | DRG 603 ==
DX: L03.90 Cellulitis, unspecified (principal); J44.9 Chronic obstructive pulmonary disease, unspecified; D72.1 Eosinophilia; F03.90 Unspecified dementia, unspecified severity, without behavioral disturbance, psychotic disturbance, mood disturbance, and anxiety; B86 Scabies; B36.9 Superficial mycosis, unspecified; E03.9 Hypothyroidism, unspecified; F25.0 Schizoaffective disorder, bipolar type

== ENCOUNTER 2020-04-22 00:12 | Inpatient (IN) | payer MEDICARE, OTHER ==
[~2020-04-22] VITALS: Ht 160 cm; Wt 76.2 kg
[~2020-04-22 00:12] MED LIST changes: +BENADRYL ALLERG25 M1 PO; +BENADRYL25 MG ORAL; +CALCIUM CARBON500 M1 PO; +DULCOLAX10 MG RC; +FLUCONAZOLE100 MG ORAL; +HYDROCORTISONE59 M1 TP; +LEVOTHYROXINE125 MCG ORAL; +MOM30 ML ORAL; +MULTIVITAMINS1 EAC8 ORAL; +OLANZAPINE2.5 MG ORAL; +POTASSIUM CHLO20 ME3 PO
--- NOTE | 2020-04-22 00:15 | NUR ---
ED Nurse Note: Patient brought into the ED by Miguel Friend from [facility] with c/o fever onset 04/21. Per EMS pt temp 101 at SNF and was given antipyretic at 1999, temp recheck by EMS T: 98.9. Pt also has nonproductive cough, satting 92% RA, triage o2 sat 98%. Pt was tested for covid 04/08 and was negative. Patient denies CP/SOB/, N/V/D. Pt has generalized rash more prominent on extremities and trunk area with visible dryness and flaking. PAtient is AAOX3 and ambulatory. Placed on iso bed
--- NOTE | 2020-04-22 00:16 | NUR ---
ED Nurse Note: ERMD at bedside
[2020-04-22] MEDS ORDERED: Azithromycin 500 MG in NS 275 ML IVPB ONE (00:30)
[2020-04-22] MEDS ORDERED: cefTRIAXone 1 GM in NS 55 ML IV ONE (00:30)
[2020-04-22] MEDS ORDERED: dexAMETHasone 10mg/ml Inj IV ONE (00:30)
--- NOTE | 2020-04-22 00:30 | NUR ---
ED Nurse Note: Blood and culture sent to lab
[2020-04-22 00:39] LABS: HEMATOCRIT 46.2 % (37.0-47.0); HEMOGLOBIN 16.3 G/DL (12.0-16.0); MEAN CORPUSCULAR VOLUME 86 FL (80-99); PLATELET COUNT 197 K/UL (150-450); RED BLOOD COUNT 5.39 M/UL (4.20-5.40); RED CELL DISTRIBUTION WIDTH 14.5 % (11.6-14.8); WHITE BLOOD COUNT 5.5 K/UL (4.8-10.8)
[2020-04-22 00:45] VITALS: BP 102/58
--- NOTE | 2020-04-22 00:45 | NUR ---
ED Nurse Note: Xray done at bedside
[2020-04-22 00:53] LABS: ANION GAP 4 mmol/L (5-15); BLOOD UREA NITROGEN 19 mg/dL (7-18); CARBON DIOXIDE 31 MMOL/L (21-32); CHLORIDE 99 MMOL/L (98-107); CREATININE 1.2 MG/DL (0.55-1.30); POTASSIUM 4.1 MMOL/L (3.5-5.1); SODIUM 134 MMOL/L (136-145)
[2020-04-22 01:09] LABS: ALANINE AMINOTRANSFERASE 13 U/L (12-78); ALBUMIN 3.2 G/DL (3.4-5.0); ALBUMIN/GLOBULIN RATIO 0.8 (1.0-2.7); ALKALINE PHOSPHATASE 95 U/L (46-116); ASPARTATE AMINO TRANSFERASE 30 U/L (15-37); BILIRUBIN,TOTAL 0.3 MG/DL (0.2-1.0); CREATINE KINASE 73 U/L (26-308); FERRITIN 119 NG/ML (8-388); LACTATE DEHYDROGENASE 194 U/L (81-234); PHOSPHORUS 3.5 MG/DL (2.5-4.9)
--- NOTE | 2020-04-22 01:09 | Emergency Room Report ---
History of Present Illness General Chief Complaint: Fever Source: Patient, Medical Record Present Illness HPI 79-year-old female with past medical history of COPD, dementia, hypothyroidism, dermatitis sent by Dr Carroll from [facility] for fever. Patient was given antipyretic at [facility] prior to arrival. Also complains of dry cough. She is currently afebrile and denying any complaints of headache, vision changes, neck pain, phlegm, chest pain, shortness of breath, or weakness The patient's symptoms were gradual onset, severity was moderate, duration since 1 day. Quality: Coughing Past medical history: COPD, hypothyroidism, dermatitis Past surgical history: Tonsillectomy Smoking: Denies Alcohol use: Denies Drug use: Denies Review of systems: CONST: Positive fevers or chills, No night sweats PULMONARY: Positive cough, No shortness of breath CARDIAC: No chest pain, No palpitations GI: No vomiting, No diarrhea , No melena_or_BRBPR : No dysuria, No hematuria, No discharge NEURO: No new_focal_weakness_or_numbness, No confusion, No vision changes 14 point Review of Systems is otherwise negative except per HPI Physical Exam: GENERAL: Awake_alert_ nontoxic, no acute distress Spo2 92% on RA -normal. Afebrile EYES: Extraocular muscles are intact. Conjunctivae clear. Lids without swelling ENT: External nose and ear normal_in_appearance. Oropharynx clear. Head_atraumatic, Moist_oral_mucosa NECK: No JVD. No meningismus. No thyromegaly. Supple. Trachea midline RESP: Normal respiratory effort. Symmetric rise. No stridor. Clear_to_auscultation_No_rales_No_wheezes Speaks in full and complete sentences. No drooling CARDIAC: Regular rate and regular rhytm. No_significant pedal edema. ABDOMEN: Soft. Nondistended. Nontender_No_rebound_or_guarding. MSK: Normal muscle tone, without rigidity. Extremities without asymmetric deformity or swelling. SKIN: Facial/neck/trunk dermatitis, No cellulitis. No palpable crepitus. NEUROLOGIC: Alert, oriented x3. Motor_and_sensation_grossly_intact. No truncal ataxia. Gait_normal Psych: Normal mood and affect, normal judgment and insight - COORDINATION OF CARE Case was discussed with: Patient , Patient's Physician Any labs and imaging that were ordered were interpreted as part of the medical decision making: Medical Decision Making/Plan: Differential includes pneumonia, bronchitis, CHF, pulmonary edema, pulmonary embolism, pleural effusion among others. Symptoms are not likely to be pulmonary embolism, patient no significant PE risk factors, and has more likely alternate cause of symptoms. CXR shows R sided pneumonia and elevated R hemidiaphragm. Labs show (+)COVID PCR which is likely the etiology of her fever. Also show mild hyponatremia/hypocalcemia. CRP is elevated due to COVID, otherwise lactic acid is WNL. Flu swab was negative. Presentation not consistent with ischemia / ACS. EKG shows normal sinus rhythm. No ischemia Patient given Ceftriaxone / Azithromycin. Decadron given Based on the patients PSI/PORT score, has high enough mortality risk that inpatient admission for IV antibiotics and clinical observation is most appropriate. I spoke with Dr. Carroll, and reviewed the patients presentation, workup, results, and treatment. They will admit the patient for further care and evaluation, and assume care of the patient at this time. Allergies: Coded Allergies: No Known Allergies (Unverified , 07/24/15) COVID-19 Screening Contact w/high risk pt: No Experienced COVID-19 symptoms?: Yes COVID-19 Testing performed GRIT BLASTER: Yes - 04/08/20 COVID-19 Screening: Negative COVID-19 COVID-19 Testing Source: [facility] Patient History Last Menstrual Period: n/a Nursing Documentation-PMH Past Medical History: No History, Except For Hx Cardiac Problems: Yes - dermatitis Hx Hypertension: Yes Hx COPD: Yes Hx Cancer: No Hx Gastrointestinal Problems: No Hx Neurological Problems: Yes Hx Dementia: Yes Physical Exam Vital Signs Date Time Temp Pulse Resp B/P (MAP) Pulse Ox O2 Delivery O2 Flow Rate FiO2 04/22/20 00:13 99.1 62 18 102/58 (73) 92 Room Air Sp02 EP Interpretation: reviewed, normal Medical Decision Making Diagnostic Impression: Primary Impression: COVID-19 Additional Impressions: COPD exacerbation Dementia with behavioral disturbance Rash and other nonspecific skin eruption Fever Hypocalcemia Hyponatremia EKG Diagnostic Results Troponin ordered: Yes When was troponin ordered?: Apr 22, 2020 PA Scribe Text 12-lead EKG (interpreted by me) Time: 29 Indication: Rhythm analysis Tracing visualized and Interpreted by me. Rhythm: Normal sinus rhythm Rate: 76 bpm QTc: 456 Morphology: No_significant_ST_elevations_or_depressions, No STEMI Impression: Normal_sinus_rhythm_without_significant_abnormality Rhythm Strip Diag. Results Rhythm Strip Time: 01:08 EP Interpretation: yes Rate: 80 Rhythm: NSR, no PVC's, no ectopy Chest X-Ray Diagnostic Results Chest X-Ray Diagnostic Results : PA Scribe Text Chest X-Ray: Views: [ 1 ] view(s) Indication: Fever Findings: Normal heart size. Mediastinum normal. RLL pneumonia. Bilateral interstitial infiltrate Impression: Elevated right hemidiaphragm. Interstitial infiltrate. The X-ray(s) were independently viewed and interpreted contemporaneously Electronically signed by Naz mcintosh DO Reevaluation Time: 01:36 Last Vital Signs Date Time Temp Pulse Resp B/P (MAP) Pulse Ox O2 Delivery O2 Flow Rate FiO2 //20 00:13 99.1 62 18 102/58 (73) 92 Room Air Status: improved Disposition: ADMITTED INPATIENT Admit Decision Time: 01:08 Condition: Stable Referrals: Mimi Carroll MD (PCP) Naz Lorenz D.O. Apr 22, 2020 01:08
--- NOTE | 2020-04-22 01:26 | Diagnostic Imaging Report ---
EXAM: XR Chest, 1 View CLINICAL HISTORY: COUGH TECHNIQUE: Frontal view of the chest. COMPARISON: 08/03/2018 FINDINGS: Lungs: No consolidation or mass. Elevated right hemidiaphragm, unchanged. Slight right infrahilar opacity. Pleural space: No acute findings Heart: No cardiomegaly. Bones/joints: No acute findings. IMPRESSION: Elevated right hemidiaphragm, unchanged. Slight right infrahilar opacity.
--- NOTE | 2020-04-22 01:57 | NUR ---
ED Nurse Note: Report given to ZAKIA HERNANDEZ
--- NOTE | 2020-04-22 02:45 | NUR ---
TRANSFER TO FLOOR: [facility] to [place] at rm [facility]. Belongings checked and given to RN. PAtient transferred safely to bed and endorsed to RN
--- NOTE | 2020-04-22 03:05 | NUR ---
NURSE NOTES: Received pt awake,A&O x 3-4, and verbal. Pt has no sob,fever, and cough. Iv is intact and asymptomatic. Skin is intact. Bed is in the lowest position,locked,alarm on and call light within reach. We will keep monitoring the pt.
[2020-04-22 04:00] VITALS: BP 105/98
[2020-04-22] MEDS ORDERED: ASCORBIC ACID500 M3 ORAL (04:50)
[2020-04-22] MEDS ORDERED: Os-Cal (Oyster Shell) 500mg tab ORAL PRN (07:00)
[2020-04-22] MEDS ORDERED: Acetaminophen 500mg (ES) tab ORAL PRN (07:00)
[2020-04-22] MEDS ORDERED: Milk of Magnesia 30ml Ud ORAL PRN (07:00)
[2020-04-22] MEDS ORDERED: Varibar Thin Liquid powder 148gm MC PRN (07:15)
[2020-04-22] MEDS ORDERED: Varibar Nectar 240ml MC PRN (07:15)
[2020-04-22] MEDS ORDERED: Varibar Honey 250ml MC PRN (07:15)
[2020-04-22] MEDS ORDERED: Varibar Pudding 230ml MC PRN (07:15)
--- NOTE | 2020-04-22 07:22 | NUR ---
HAND-OFF: Report given to DAVID GEORGE.
[2020-04-22 08:00] VITALS: BP 124/75
--- NOTE | 2020-04-22 08:15 | NUR ---
NURSE NOTES Received patient from DAVID Ugalde. patient in bed. a&Ox4, verbally responsive. no respiratory distress noted on room air. no pain at this time. skin rash on faca, both arms, some area on buttocks and thighs. ambulatory, refused to wear hospital gown. yellow socks provided. VD pending. IV on LAC intact. flushed. contact and droplet isolation d/t COVID+, PPE at all times. bed in the lowest position and locked. call light within reach, alarm on. will continue to provide plan of care.
[2020-04-22] MEDS: OLANZapine 2.5mg tab ORAL SCH ×2 (08:48→17:39)
[2020-04-22] MEDS: Ascorbic Acid 500mg tab ORAL SCH (08:48)
--- NOTE | 2020-04-22 08:54 | NUR ---
NURSE NOTES: refused taking Synthroid for hypothyroid. Patient said that she would take tomorrow morning. explained patient risks and benefit.
[2020-04-22 12:00] VITALS: BP 126/69
[2020-04-22] MEDS ORDERED: Albuterol 90mcg Inhaler 8gm INH PRN (12:45)
--- NOTE | 2020-04-22 13:10 | Diagnostic Imaging Report ---
Indication: Arm pain and swelling Technique: Grayscale and duplex Doppler imaging of the veins in both upper extremities performed in real time utilizing compression and augmentation. Comparison: None Findings: Duplex Doppler interrogation of the veins in both upper extremity is performed. Images portions of the bilateral internal jugular, subclavian, axillary, brachial and cephalic veins are patent. The left basilic vein is patent. Right basilic vein is not imaged. IMPRESSION: No DVT noted in the visualized veins of the bilateral upper extremities.
--- NOTE | 2020-04-22 15:33 | NUR ---
CASE MANAGEMENT:REVIEW 79 YR OL FEMALE BIBA FROM [facility] CC;FEVER SI;COVID PNEUMONIA 99.1 85 20 102/58 92% ON RA NA 134 BUN 19 CRP 1.9 TSH 56.731 COVID RAPID ~ POSITIVE CXR ~ Elevated right hemidiaphragm, unchanged. Slight right infrahilar opacity. IS;ZITHROMAX IV DECADRON IV ROCEPHIN IV ADMITTED TO MED SURG MED SURG STATUS DCP;[facility]
[2020-04-22 16:00] VITALS: BP 121/74
--- NOTE | 2020-04-22 16:30 | Consultation ---
DATE OF CONSULTATION: 04/22/2020 INFECTIOUS DISEASE CONSULT PRIMARY ATTENDING PHYSICIAN: Mimi Carroll M.D. REASON FOR CONSULT: COVID-19 disease. HISTORY OF PRESENT ILLNESS: This is an 79-year-old female admitted today from a halfway facility because of fever, dry cough. She was diagnosed to have COVID-19. PAST MEDICAL HISTORY: COPD, dementia, hypertension, dermatitis, diverticulosis. ALLERGIES: No known drug allergy. PAST SURGICAL HISTORY: Tonsillectomy. MEDICATIONS: Getting Tylenol, olanzapine, levothyroxine, Lexapro, vitamin C, magnesium hydroxide. Got a dose of ceftriaxone and azithromycin in the ER. SOCIAL HISTORY: jail resident. No history of alcohol, drug abuse, or smoking. Single. Originally from [facility]. REVIEW OF SYSTEMS: The patient denies fever, chills, cough, nausea, vomiting, diarrhea, or dysuria. PHYSICAL EXAMINATION: VITAL SIGNS: Temperature 97.6, pulse 85, blood pressure 124/75. GENERAL APPEARANCE: Well developed. No acute distress. HEENT: [place] conjunctivae. HEART: Normal rate. LUNGS: Clear. ABDOMEN: Soft, nontender. EXTREMITIES: No edema. SKIN: Erythematous rash on face, upper body. LABORATORY AND DIAGNOSTIC DATA: WBC 5.5, hemoglobin 16.3, hematocrit 46.2, platelets 197. Sodium 134, potassium 4.1, chloride 99, bicarb 31, BUN 19, creatinine 1.2, TSH 56.7. COVID-19 test was positive. Influenza A and B are negative. Chest x-ray showed elevated right hemidiaphragm, right infrahilar opacity. IMPRESSION: COVID-19 disease seems mild. The patient is on room air oxygen, has COPD, hypothyroidism, dermatitis, hypertension, dementia, diverticulosis. RECOMMENDATIONS: Observe off antibiotic. We will follow up on clinical course. At the end of my exam, I thank Dr. Carroll for involving me in the care of this patient. Seth Blackwell M.D. DR: HILLARY JOB#: [id number] CC: JHOAN
--- NOTE | 2020-04-22 16:47 | NUR ---
Speech Pathology Note (Bedside Dysphagia Evaluation) Brief Note: Ms. Torres is an 79 year old female came to ED for cough. She was found to be COVID 19 positive and subsequently admitted for clinical observation. She was recently hospitalized here from 02/15/202 through 02/22/2020 for rash, hypokalemia, dementia, hypothyroidism, COPD, cholelithiasis, and Diverticulosis. Current labs: WBC 5.5, H/H 16.3/46.2, and platelet 197, Na 134, K 4.1, CL 99, CO2 31, BUN 19, Creatine 1.2, Glucose 94 TSH 56.731. vital Signs: Temp 99.1, Pulse 62, BP 102/58~126/69, SPO2 97~100 ORA. Imaging: CXR 04/22/2020, and CT chest 08/03/2018 reviewed. Findings: Ms. Torres is alert and oriented x 3. She denies dysphagia, odynophagia or dyspnea. Her speech is clear and voice is intact. The mucosa of oral cavity is mildly erythema. missing teeth is noted. Given her 118cc of thin liquid, she demonstrated functional swallow. She is opn regular diet at [facility]. Interpretation: 1. Functional swallow Plan: 1. Regular diet and thin liquid No further [facility] [employer] [employer] indicated at this time. Jeremy Reyes
--- NOTE | 2020-04-22 18:30 | Consultation ---
DATE OF CONSULTATION: 04/22/2020 CONSULTING PHYSICIAN: SHAILESH Hardin ATTENDING PHYSICIAN: Mimi Carroll MD REASON FOR CONSULTATION: Fever, dry cough for 1 day. HISTORY OF PRESENT ILLNESS: This is a pleasant 79-year-old female who was admitted to the hospital due to 1-day history of gradual-onset fever and dry cough without associated headache, visual change, neck pain, chest pain, shortness of breath, or weakness. Chest x-ray on 04/22/2020 shows elevated right hemidiaphragm, unchanged from previous. Slight right infrahilar opacity. EKG on 04/22/2020 shows normal sinus rhythm without significant abnormality. Rapid COVID-19 test on 04/22/2020 positive. Influenza A, B antigen test on 04/22/2020 negative. Patient received antibiotics, admitted to the hospital for further management and care. PAST MEDICAL HISTORY: COPD, hypothyroidism, dermatitis. SURGERIES: Tonsillectomy. TRAVEL HISTORY: None reported. MEDICATIONS: Olanzapine, levothyroxine, Lexapro, vitamin C, barium sulfate, bisacodyl. ALLERGIES: None reported. FAMILY HISTORY: None reported. PERSONAL/SOCIAL HISTORY: Patient stays in prison facility. Denies smoking, alcohol, or drug use. REVIEW OF SYSTEMS: HEENT: Denies any headaches, blurry vision, hoarseness, dysphagia, hearing loss, tinnitus, or loss of balance. CHEST AND LUNGS: Denies any chest discomfort or hemoptysis. CARDIOVASCULAR: Denies any exertional chest pain, pressure, palpitation, orthopnea, PND, or ankle swelling. GASTROINTESTINAL: Denies vomiting, abdominal pain, or oily or foul-smelling stools. No constipation or hematochezia. GENITOURINARY: Denies any frequency, urgency, dysuria, hematuria, flank pain, kidney stone, or kidney disease. NEUROLOGICAL: Denies seizure activity, dizziness, or fainting episodes. PHYSICAL EXAMINATION: VITAL SIGNS: Blood pressure 124/75, heart rate 85, respiratory rate 20, weight 167 pounds, height 5 feet 2 inches. HEENT: Head exam reveals that the head is normocephalic, atraumatic without deformity or unusual swelling. Pupils are round, reactive to light and accommodation normally. There is no nystagmus, lid lag, or exophthalmos. Nasal mucosa is pink. Vision is normal. CHEST AND LUNGS: Reveals clear, normal, symmetrical breath sounds with no adventitious sounds. Expansion is normal. There are no surgical scars. CARDIOVASCULAR: Reveals normal S1, S2 without murmurs, rubs, or clicks. ABDOMEN: Soft with no tenderness or organomegaly. RECTAL: Deferred. MUSCULOSKELETAL: There is no tenderness to palpation. Range of motion is normal. EXTREMITIES: Bilateral trace edema. NEUROLOGICAL: Cranial nerves II through XII are intact. Gait is normal. Deep tendon reflexes are normal. LABORATORY DATA: Lab testing shows hemoglobin of 16.3, chemistries shows sodium of 134, calcium of 8, BUN of 19, CRP of 1.9, lactic acid within normal limits, TSH 56.7, coagulation panel within normal limits. IMPRESSION: 1. COVID-19 with history of fever. - Given her normoxemic status on room air, hold off Decadron and monitor saturation. - Keep on respiratory isolation. - Remdesivir and antibiotics per ID. 2. History of COPD. - Stable. - Albuterol added. 3. Slight right infrahilar opacity. Agree with broad spectrum antibiotics. I will follow carefully. The care for this patient was discussed with my supervising physician. Time spent for this case was approximately 31 minutes Wisam Aponte M.D. SHAILESH Johnson DR: RENA JOB#: [id number] CC: JHOAN
--- NOTE | 2020-04-22 19:04 | NUR ---
NURSE HAND-OFF: Important Events on Shift: monitor fever. breathing tx PRN Patient Status: stable Diet: CCHO medium Pending Orders: n/a Pending Results/Labs:n/a Pending MD notification:n/a Latest Vital Signs: Temperature 97.5 , Pulse 79 , B/P 121 /74 , Respiratory Rate 20 , O2 SAT 99 , Room Air, O2 Flow Rate . Vital Sign Comment: stable Latest Garza Fall Score: 20 Fall Risk: Low Risk Safety Measures: Call light Within Reach, Bed Alarm Zone 1, Side Rails Side Rails x2, Bed position Low and Locked. Fall Precautions: Yellow Socks Report given to DAVID Quezada.
--- NOTE | 2020-04-22 19:40 | NUR ---
NURSE NOTES: Patient in bed, awake and alert x4. On room air with no signs of distress or SOB. IV intact and patent. COVID + precautions. Bed locked and in lowest position. Bed alarm on. Call light in reach. Will continue plan of care.
--- NOTE | 2020-04-22 21:23 | General Progress Note ---
Progress Note Progress Note let this serve as H&P for this admission came in from snf with fever 101 deadache and faticue and cough for one day ;also has chronic s/p facial redness /dermatits .also had loss of apeetite.tested positive for covid and admitted for covid pna and fever and hypothroid w TSH56 .pt is poor historian due to dementia PMH RASH dermatitis copd dementia hypothyroid htn PAST SURGERY tonsellictomy NKDA MEDS bisacodyl lexapro levoxyl olanzapine FH noncontirbutary SH denies h/o smoking and drinking and drug abuse ROS denies headache and sob denies n/v/d has poor appetitie and chills no cp no extremity pain t97* HR 72 sbp:140/72 heent:perlla chest CTA RRR: rrr no murmurs GI:soft nontender.positive BS ext: no edema afebrile otX1 na134,bun19,cr 1.2,k4.1,glucose 94 wbc 5.a5 hb16;3 A\P covid positive fever hypothroid TSH 56 FTT due to covid pna h/o dermatitis Mimi Carroll MD Apr 22, 2020 21:23
[2020-04-23 04:00] VITALS: BP 142/74
--- NOTE | 2020-04-23 06:19 | NUR ---
NURSE NOTES: Patient refusing AM medication and became agitated when asked. RN tried to explain risks and benefits but patient continues to refuse, yelling "No! No quiero!" Patient also refused vital signs x2 during PM shift.
--- NOTE | 2020-04-23 06:23 | NUR ---
NURSE HAND-OFF: Important Events on Shift: Resistive to care, refuses meds/vital signs Patient Status: Stabole Diet: [] Pending Orders: [] Pending Results/Labs:[] Pending MD notification:[] Latest Vital Signs: Temperature 97.7 , Pulse 68 , B/P 142 /74 , Respiratory Rate 20 , O2 SAT 94 , Room Air, O2 Flow Rate . Vital Sign Comment: [] Latest Garza Fall Score: 20 Fall Risk: Low Risk Safety Measures: Call light Within Reach, Bed Alarm Zone 1, Side Rails Side Rails x2, Bed position Low and Locked. Fall Precautions: Yellow Socks Report given to [].
--- NOTE | 2020-04-23 06:27 | NUR ---
NURSE HAND-OFF: Important Events on Shift: Resistive to care, refuses meds/vital signs Patient Status: Stable Diet: CCHO med Pending Orders: N/A Pending Results/Labs: No labs Pending MD notification: N/A Latest Vital Signs: Temperature 97.7 , Pulse 68 , B/P 142 /74 , Respiratory Rate 20 , O2 SAT 94 , Room Air, O2 Flow Rate . Vital Sign Comment: Latest Garza Fall Score: 20 Fall Risk: Low Risk Safety Measures: Call light Within Reach, Bed Alarm Zone 1, Side Rails Side Rails x2, Bed position Low and Locked. Fall Precautions: Yellow Socks Addendum: 04/23/20 at 0723 by GWYN MA RN Report given to DAVID Bernard
--- NOTE | 2020-04-23 07:45 | Consultation ---
DATE OF CONSULTATION: 04/23/2020 ENDOCRINOLOGY CONSULTATION CONSULTING PHYSICIAN: Mateo Johnson MD REFERRING PHYSICIAN: Mimi Carroll MD REASON FOR CONSULTATION: Hypothyroidism. HISTORY OF PRESENT ILLNESS: The patient is an 79-year-old female with history of COPD, dementia, hypothyroidism, dermatitis who lives in a skilled facility, she developed fever, came in with COVID infection and admitted to the floor for observation and treatment. The patient is on COVID isolation. TSH was as high as 56. She had a recent admission to [facility] in February and at that time TSH was at target at 3.2. The patient has been on levothyroxine 225 mcg daily. PAST MEDICAL HISTORY: 1. COPD. 2. Dermatitis. 3. Hypothyroidism. 4. Dementia. 5. Psychiatric illness. PAST SURGICAL HISTORY: Tonsillectomy. SOCIAL HISTORY: No smoking, alcohol, drug use. REVIEW OF SYSTEMS: Difficult to obtain, otherwise as per HPI. MEDICATIONS: Reviewed and reconciled. LABORATORY AND DIAGNOSTIC DATA: WBC 5.5, hemoglobin 16, hematocrit 46, platelets of 197. Sodium 134, potassium 4.1, chloride 99, bicarb 31, BUN 19, creatinine 1.3. TSH of 56. COVID test is positive. PHYSICAL EXAMINATION: VITAL SIGNS: Blood pressure 142/74, respiratory rate of 20, temperature 97.7, pulse 68. Physical exam was deferred due to COVID isolation. DIAGNOSES: 1. Hypothyroidism secondary to noncompliance. 2. COVID pneumonia. 3. Dementia. DISCUSSION: The patient has been refusing levothyroxine 225 mcg; therefore TSH is elevated. I will discontinue that and start the patient IV Synthroid 100 mcg daily during stay. When she was at the assisted, she should get back on the levothyroxine 225 mcg daily. Thank you, Dr. Carroll, for the courtesy of this consultation. Mateo Johnson M.D. DR: Crystal JOB#: [id number] CC:
--- NOTE | 2020-04-23 07:50 | NUR ---
NURSE NOTES: received report from Pilar. a&Rosmery4, verbally responsive. no respiratory distress noted on room air. no pain at this time. Iv on LAC refused to being flushed. bed in the lowest position and locked. call light within reach. alarm on. will continue to provide plan of care.
--- NOTE | 2020-04-23 07:54 | NUR ---
NURSE NOTES: Patient refuses vital signs, care, assessments. Complexion purple per base line, skin rash per base line. Stable, verbally responsive, no signs of respiratory distress. Bed in lowest position and locked, call light within reach. Will continue to monitor. Report received from DAVID Bernard. Addendum: 04/23/20 at 0816 by Rachel Cortez RN SHAILESH Bhatia notified of patient's condition and resistive to vital signs.
--- NOTE | 2020-04-23 08:27 | NUR ---
NURSE NOTES: patient was seen by SHAILESH Bhatia. but refused to get daily rounding, assessment.
--- NOTE | 2020-04-23 08:50 | Pulmonology Progress Note ---
Subjective ROS Limited/Unobtainable: No Interval Events: no acute events overnight reported Constitutional: Reports: no symptoms HEENT: Repors: no symptoms Respiratory: Reports: no symptoms Cardiovascular: Reports: no symptoms Gastrointestinal/Abdominal: Reports: no symptoms Allergies: Coded Allergies: No Known Allergies (Unverified , 07/24/15) Objective Last 24 Hour Vital Signs Date Time Temp Pulse Resp B/P (MAP) Pulse Ox O2 Delivery O2 Flow Rate FiO2 04/23/20 04:00 97.7 68 20 142/74 (96) 94 04/22/20 20:09 Room Air 04/22/20 16:00 97.5 79 20 121/74 (90) 99 04/22/20 12:00 97.2 80 20 126/69 (88) 100 04/22/20 09:00 Room Air Intake and Output 04/22/20 04/23/20 19:00 07:00 Intake Total 840 ml Balance 840 ml Intake Oral 840 ml # Voids 3 2 Objective 04/23/2020 pt laying in bed; saturating well on RA General Appearance: WD/WN, no acute distress HEENT: normocephalic, atraumatic Respiratory: chest wall non-tender, lungs clear Cardiovascular: normal rate, regular rhythm, no JVD Abdomen: normal bowel sounds, soft, non tender Microbiology Date/Time Source Procedure Growth Status 04/22/20 00:30 Nasal Nares - Final Complete 04/22/20 00:30 Nasal Nares - Final Complete 04/22/20 00:30 Nasopharynx SARS-CoV-2 RdRp Gene Assay - Final Complete Current Medications Medications (Trade) Dose Ordered Sig/Jad Route PRN Reason Start Time Stop Time Status Last Admin Dose Admin Acetaminophen (Tylenol) 500 mg Q4H PRN ORAL Mild Pain (Pain Scale 1-3) 04/22/20 07:00 05/22/20 06:59 Acetaminophen (Tylenol) 650 mg Q4H PRN ORAL Temp >100.5 04/22/20 10:45 05/22/20 10:44 Albuterol Sulfate (Proventil MDI) 2 puff Q4H PRN INH Shortness of Breath 04/22/20 12:45 07/21/20 12:44 Ascorbic Acid (Vitamin C) 500 mg DAILY ORAL 04/22/20 09:00 05/22/20 08:59 04/22/20 08:48 Barium Sulfate (Varibar Honey) 250 ml NOW PRN MC RAD 04/22/20 07:15 04/25/20 07:06 Barium Sulfate (Varibar [place]) 240 ml NOW PRN MC RAD 04/22/20 07:15 04/25/20 07:06 Barium Sulfate (Varibar Pudding) 230 ml NOW PRN MC RAD 04/22/20 07:15 04/25/20 07:06 Barium Sulfate (Varibar Thin Liquid powder) 148 gm NOW PRN MC RAD 04/22/20 07:15 04/25/20 07:06 Bisacodyl (Dulcolax) 10 mg Q8HR PRN RECTAL Constipation 04/22/20 07:00 07/21/20 06:59 Calcium Carbonate (Os-Carlos Enrique) 1,000 mg EVERY 6 HOURS PRN ORAL Heartburn 04/22/20 07:00 07/21/20 06:59 Escitalopram Oxalate (Lexapro) 10 mg DAILY ORAL 04/22/20 09:00 05/22/20 08:59 04/22/20 08:48 Levothyroxine Sodium (Synthroid) 100 mcg DAILY IV 04/23/20 09:00 05/23/20 08:59 Magnesium Hydroxide (Mom) 30 ml EVERY 6 HOURS PRN ORAL Constipation 04/22/20 07:00 05/22/20 06:59 Olanzapine (ZyPREXA) 2.5 mg BID ORAL 04/22/20 09:00 06/06/20 08:59 04/22/20 17:39 Assessment/Plan Assessment/Plan 1. COVID-19 with history of fever. - Given her normoxemic status on room air, hold off Decadron and monitor saturation. - Keep respiratory isolation. - Remdesivir and antibiotics per ID. - Broad spectrum antibiotics ordered. 2. History of COPD. - Stable. - Albuterol added. 3. Slight right infrahilar opacity. 4. DVT ppx - 04/22 venous duplex negative for DVT - pt declined to be on SCD - Currently pt denies CP, SOB, dyspnea, leg swelling We will follow carefully. The care for this patient was discussed with my supervising physician. Time spent for this case was approximately 31 minutes The patient was seen and examined at bedside and all new and available data was reviewed in the patients chart. I agree with the above findings, impression, and plan. (Patient was seen earlier today. Signature timestamp does not reflect patient encounter time) Don Rudolph MD Apr 23, 2020 08:50 Wisam Aponte MD Apr 23, 2020 16:23
[2020-04-23] MEDS: OLANZapine 2.5mg tab ORAL SCH ×3 (09:00→17:21)
[2020-04-23] MEDS: Ascorbic Acid 500mg tab ORAL SCH ×2 (09:00→10:13)
--- NOTE | 2020-04-23 09:00 | NUR ---
NURSE NOTES: patient refused taking morning medication. non compliant nursing care. SHAILESH Bhatia is aware.
--- NOTE | 2020-04-23 10:00 | NUR ---
NURSE NOTES: offered morning medications second time. patient refused taking medications. patient is angry. non compliant. refused checking IV line either. explained risk and benefits. patient stated that "leave me alone". will continue to monitor any change of conditioh
--- NOTE | 2020-04-23 12:21 | NUR ---
NURSE NOTES: patient refused taking vital sign and checking IV site. patient stated that "maria alejandra sleepy now.". explained risks and benefits. will continue to monitor any change of condition.
--- NOTE | 2020-04-23 14:00 | Infectious Diseases Prog Note ---
Assessment/Plan Assessment/Plan IMPRESSION: COVID-19 disease seems mild. COPD, Hypothyroidism, Dermatitis, Hypertension, Dementia, Diverticulosis. RECOMMENDATIONS: Observe off antibiotic. Subjective ROS Limited/Unobtainable: Yes Constitutional: Denies: fever Allergies: Coded Allergies: No Known Allergies (Unverified , 07/24/15) Objective Last 24 Hour Vital Signs Date Time Temp Pulse Resp B/P (MAP) Pulse Ox O2 Delivery O2 Flow Rate FiO2 04/23/20 09:00 Room Air 04/23/20 04:00 97.7 68 20 142/74 (96) 94 04/22/20 20:09 Room Air 04/22/20 16:00 97.5 79 20 121/74 (90) 99 Height (Feet): 5 Height (Inches): 3.00 Weight (Pounds): 168 General Appearance: no acute distress HEENT: mucous membranes moist Respiratory/Chest: lungs clear Cardiovascular: normal rate Abdomen: soft, non tender Extremities: no edema Neurologic/Psychiatric: other - sleeping Microbiology Date/Time Source Procedure Growth Status 04/22/20 00:30 Nasal Nares - Final Complete 04/22/20 00:30 Nasal Nares - Final Complete 04/22/20 00:30 Nasopharynx SARS-CoV-2 RdRp Gene Assay - Final Complete Current Medications Medications (Trade) Dose Ordered Sig/Jad Route PRN Reason Start Time Stop Time Status Last Admin Dose Admin Acetaminophen (Tylenol) 500 mg Q4H PRN ORAL Mild Pain (Pain Scale 1-3) 04/22/20 07:00 05/22/20 06:59 Acetaminophen (Tylenol) 650 mg Q4H PRN ORAL Temp >100.5 04/22/20 10:45 05/22/20 10:44 Albuterol Sulfate (Proventil MDI) 2 puff Q4H PRN INH Shortness of Breath 04/22/20 12:45 07/21/20 12:44 Ascorbic Acid (Vitamin C) 500 mg DAILY ORAL 04/22/20 09:00 05/22/20 08:59 04/22/20 08:48 Azithromycin 500 mg/Dextrose 275 ml @ 275 mls/hr Q24HRS IV 04/23/20 22:00 04/28/20 22:59 Barium Sulfate (Varibar Honey) 250 ml NOW PRN MC RAD 04/22/20 07:15 04/25/20 07:06 Barium Sulfate (Varibar [place]) 240 ml NOW PRN MC RAD 04/22/20 07:15 04/25/20 07:06 Barium Sulfate (Varibar Pudding) 230 ml NOW PRN MC RAD 04/22/20 07:15 04/25/20 07:06 Barium Sulfate (Varibar Thin Liquid powder) 148 gm NOW PRN MC RAD 04/22/20 07:15 04/25/20 07:06 Bisacodyl (Dulcolax) 10 mg Q8HR PRN RECTAL Constipation 04/22/20 07:00 07/21/20 06:59 Calcium Carbonate (Os-Carlos Enrique) 1,000 mg EVERY 6 HOURS PRN ORAL Heartburn 04/22/20 07:00 07/21/20 06:59 Ceftriaxone Sodium 1 gm/ Dextrose 55 ml @ 110 mls/hr Q24H IVPB 04/23/20 23:00 04/30/20 22:59 Escitalopram Oxalate (Lexapro) 10 mg DAILY ORAL 04/22/20 09:00 05/22/20 08:59 04/22/20 08:48 Levothyroxine Sodium (Synthroid) 100 mcg DAILY IV 04/23/20 09:00 05/23/20 08:59 Magnesium Hydroxide (Mom) 30 ml EVERY 6 HOURS PRN ORAL Constipation 04/22/20 07:00 05/22/20 06:59 Olanzapine (ZyPREXA) 2.5 mg BID ORAL 04/22/20 09:00 06/06/20 08:59 04/22/20 17:39 Seth Blackwell MD Apr 23, 2020 14:00
[2020-04-23 16:00] VITALS: BP 115/63
--- NOTE | 2020-04-23 18:56 | NUR ---
NURSE NOTES: Patient has been refusing care and assessments and medications. Vitals are stable. Verbally responsive, eats her meals. Bed in lowest position and locked. Call light within reach. Will continue to monitor.
--- NOTE | 2020-04-23 19:19 | NUR ---
NURSE HAND-OFF: Important Events on Shift:resisting care, medicines, assessments. Better in the afternoon. Patient Status: stable Diet: CCHO medium Pending Orders: n/a Pending Results/Labs:n/a Pending MD notification:n/a Latest Vital Signs: Temperature 97.6 , Pulse 66 , B/P 115 /63 , Respiratory Rate 20 , O2 SAT 96 , Room Air, O2 Flow Rate . Vital Sign Comment: refused x2. Last vitals stable. Latest Garza Fall Score: 20 Fall Risk: Low Risk Safety Measures: Call light Within Reach, Bed Alarm Zone 1, Side Rails Side Rails x2, Bed position Low and Locked. Fall Precautions: Yellow Socks Report given to Samantha Foster.
--- NOTE | 2020-04-23 20:30 | NUR ---
NURSE NOTES: Patient refused 2000 BP and temperature check, patient only allowed RN to put on pulse ox. Patient refusing IV abx at this time. Daughter Marla on the phone with patient. Bed low and locked, patient wearing non slip socks.
--- NOTE | 2020-04-23 20:47 | General Progress Note ---
Subjective ROS Limited/Unobtainable: Yes Allergies: Coded Allergies: No Known Allergies (Unverified , 07/24/15) Objective Last 24 Hour Vital Signs Date Time Temp Pulse Resp B/P (MAP) Pulse Ox O2 Delivery O2 Flow Rate FiO2 04/23/20 20:00 72 19 95 04/23/20 16:00 97.6 66 20 115/63 (80) 96 04/23/20 09:00 Room Air 04/23/20 04:00 97.7 68 20 142/74 (96) 94 Intake and Output 04/22/20 04/23/20 19:00 07:00 Intake Total 840 ml Balance 840 ml Intake Oral 840 ml # Voids 3 2 Height (Feet): 5 Height (Inches): 3.00 Weight (Pounds): 168 Assessment/Plan Problem List: (1) Dyspnea ICD Codes: R06.00 - Dyspnea, unspecified SNOMED: 151018859 (2) COPD exacerbation ICD Codes: J44.1 - Chronic obstructive pulmonary disease with (acute) exacerbation SNOMED: 201938590 (3) Dementia with behavioral disturbance ICD Codes: F03.91 - Unspecified dementia with behavioral disturbance SNOMED: 4031805373197 (4) COVID-19 ICD Codes: U07.1 - COVID-19 SNOMED: 472109808 Status: progressing Assessment/Plan: covid positive pna resp inuff afebrile vitals stable supportive care Mimi Carroll MD Apr 23, 2020 20:47
[2020-04-23] MEDS ORDERED: Azithromycin 500 MG in D5W 275 ML IV SCH (22:00)
[2020-04-23] MEDS ORDERED: cefTRIAXone 1 GM in D5W 55 ML IVPB SCH (23:00)
--- NOTE | 2020-04-24 06:42 | General Progress Note ---
Subjective ROS Limited/Unobtainable: Yes Allergies: Coded Allergies: No Known Allergies (Unverified , 07/24/15) Subjective events noted refusing medications in COVID isolation Objective Last 24 Hour Vital Signs Date Time Temp Pulse Resp B/P (MAP) Pulse Ox O2 Delivery O2 Flow Rate FiO2 04/24/20 00:00 98.7 04/23/20 20:54 Room Air 04/23/20 20:00 72 19 95 04/23/20 16:00 97.6 66 20 115/63 (80) 96 04/23/20 09:00 Room Air Intake and Output 04/23/20 04/24/20 19:00 07:00 Intake Total 500 ml 150 ml Balance 500 ml 150 ml Intake Oral 150 ml Other 500 ml # Voids 2 Height (Feet): 5 Height (Inches): 3.00 Weight (Pounds): 168 Objective Current Medications Medications (Trade) Dose Ordered Sig/Jad Route PRN Reason Start Time Stop Time Status Last Admin Dose Admin Acetaminophen (Tylenol) 500 mg Q4H PRN ORAL Mild Pain (Pain Scale 1-3) 04/22/20 07:00 05/22/20 06:59 Acetaminophen (Tylenol) 650 mg Q4H PRN ORAL Temp >100.5 04/22/20 10:45 05/22/20 10:44 Albuterol Sulfate (Proventil MDI) 2 puff Q4H PRN INH Shortness of Breath 04/22/20 12:45 07/21/20 12:44 Ascorbic Acid (Vitamin C) 500 mg DAILY ORAL 04/22/20 09:00 05/22/20 08:59 04/22/20 08:48 Azithromycin 500 mg/Dextrose 275 ml @ 275 mls/hr Q24HRS IV 04/23/20 22:00 04/28/20 22:59 Barium Sulfate (Varibar [place]) 250 ml NOW PRN MC RAD 04/22/20 07:15 04/25/20 07:06 Barium Sulfate (Varibar [place]) 240 ml NOW PRN MC RAD 04/22/20 07:15 04/25/20 07:06 Barium Sulfate (Varibar Pudding) 230 ml NOW PRN MC RAD 04/22/20 07:15 04/25/20 07:06 Barium Sulfate (Varibar Thin Liquid powder) 148 gm NOW PRN MC RAD 04/22/20 07:15 04/25/20 07:06 Bisacodyl (Dulcolax) 10 mg Q8HR PRN RECTAL Constipation 04/22/20 07:00 07/21/20 06:59 Calcium Carbonate (Os-Carlos Enrique) 1,000 mg EVERY 6 HOURS PRN ORAL Heartburn 04/22/20 07:00 07/21/20 06:59 Ceftriaxone Sodium 1 gm/ Dextrose 55 ml @ 110 mls/hr Q24H IVPB 04/23/20 23:00 04/30/20 22:59 Escitalopram Oxalate (Lexapro) 10 mg DAILY ORAL 04/22/20 09:00 05/22/20 08:59 04/22/20 08:48 Levothyroxine Sodium (Synthroid) 100 mcg DAILY IV 04/23/20 09:00 05/23/20 08:59 Magnesium Hydroxide (Mom) 30 ml EVERY 6 HOURS PRN ORAL Constipation 04/22/20 07:00 05/22/20 06:59 Olanzapine (ZyPREXA) 2.5 mg BID ORAL 04/22/20 09:00 06/06/20 08:59 04/23/20 17:21 Assessment/Plan Problem List: (1) Hypothyroidism ICD Codes: E03.9 - Hypothyroidism, unspecified SNOMED: 37432236 (2) COVID-19 ICD Codes: U07.1 - COVID-19 SNOMED: 803975978 Status: progressing Assessment/Plan: elevated TSH due to non compliance with Levothyroxine changed to IV - still refusing Mateo Johnson MD Apr 24, 2020 06:42
--- NOTE | 2020-04-24 07:25 | NUR ---
HAND-OFF: Report given to DAVID Bernard.
--- NOTE | 2020-04-24 08:37 | NUR ---
NURSE NOTES: received report from DAVID Singh. patient in bed. A&Ox4, verbally responsive, no respiratory distress noted on room air. no pain at this time. c/o cold. provide warm pack. feeling better. refused taking vital sign. IV on LAC. refused assess IV site. patient has been refusing nursing care through night. SHAILESH Bhatia is aware. bed in the lowest position and locked. call light within reach. will continue to provide plan of care.
[2020-04-24] MEDS: OLANZapine 2.5mg tab ORAL SCH ×3 (09:00→17:51)
[2020-04-24] MEDS: Ascorbic Acid 500mg tab ORAL SCH ×2 (09:00→09:36)
--- NOTE | 2020-04-24 11:34 | Infectious Diseases Prog Note ---
Assessment/Plan Assessment/Plan IMPRESSION: COVID-19 disease seems mild. COPD, Hypothyroidism, Dermatitis, Hypertension, Dementia, Diverticulosis. RECOMMENDATIONS: Observe off antibiotic. Subjective ROS Limited/Unobtainable: Yes Constitutional: Denies: fever Allergies: Coded Allergies: No Known Allergies (Unverified , 07/24/15) Objective Last 24 Hour Vital Signs Date Time Temp Pulse Resp B/P (MAP) Pulse Ox O2 Delivery O2 Flow Rate FiO2 04/24/20 09:00 Room Air 04/24/20 00:00 98.7 04/23/20 20:54 Room Air 04/23/20 20:00 72 19 95 04/23/20 16:00 97.6 66 20 115/63 (80) 96 Height (Feet): 5 Height (Inches): 3.00 Weight (Pounds): 168 HEENT: mucous membranes moist Respiratory/Chest: lungs clear Cardiovascular: normal rate Abdomen: soft, non tender Skin: rash Neurologic/Psychiatric: other - sleeping Microbiology Date/Time Source Procedure Growth Status 04/22/20 00:30 Nasal Nares - Final Complete 04/22/20 00:30 Nasal Nares - Final Complete 04/22/20 00:30 Nasopharynx SARS-CoV-2 RdRp Gene Assay - Final Complete 04/22/20 00:30 Blood Blood Culture - Preliminary NO GROWTH AFTER 48 HOURS Resulted 04/22/20 00:00 Blood Blood Culture - Preliminary NO GROWTH AFTER 48 HOURS Resulted Current Medications Medications (Trade) Dose Ordered Sig/Jad Route PRN Reason Start Time Stop Time Status Last Admin Dose Admin Acetaminophen (Tylenol) 500 mg Q4H PRN ORAL Mild Pain (Pain Scale 1-3) 04/22/20 07:00 05/22/20 06:59 Acetaminophen (Tylenol) 650 mg Q4H PRN ORAL Temp >100.5 04/22/20 10:45 05/22/20 10:44 Albuterol Sulfate (Proventil MDI) 2 puff Q4H PRN INH Shortness of Breath 04/22/20 12:45 07/21/20 12:44 Ascorbic Acid (Vitamin C) 500 mg DAILY ORAL 04/22/20 09:00 05/22/20 08:59 04/22/20 08:48 Azithromycin 500 mg/Dextrose 275 ml @ 275 mls/hr Q24HRS IV 04/23/20 22:00 04/28/20 22:59 Barium Sulfate (Varibar [place]) 250 ml NOW PRN MC RAD 04/22/20 07:15 04/25/20 07:06 Barium Sulfate (Varibar [place]) 240 ml NOW PRN MC RAD 04/22/20 07:15 04/25/20 07:06 Barium Sulfate (Varibar [place]udding) 230 ml NOW PRN MC RAD 04/22/20 07:15 04/25/20 07:06 Barium Sulfate (Varibar Thin Liquid powder) 148 gm NOW PRN MC RAD 04/22/20 07:15 04/25/20 07:06 Bisacodyl (Dulcolax) 10 mg Q8HR PRN RECTAL Constipation 04/22/20 07:00 07/21/20 06:59 Calcium Carbonate (Os-Carlos Enrique) 1,000 mg EVERY 6 HOURS PRN ORAL Heartburn 04/22/20 07:00 07/21/20 06:59 Ceftriaxone Sodium 1 gm/ Dextrose 55 ml @ 110 mls/hr Q24H IVPB 04/23/20 23:00 04/30/20 22:59 Escitalopram Oxalate (Lexapro) 10 mg DAILY ORAL 04/22/20 09:00 05/22/20 08:59 04/22/20 08:48 Levothyroxine Sodium (Synthroid) 100 mcg DAILY IV 04/23/20 09:00 05/23/20 08:59 Magnesium Hydroxide (Mom) 30 ml EVERY 6 HOURS PRN ORAL Constipation 04/22/20 07:00 05/22/20 06:59 Olanzapine (ZyPREXA) 2.5 mg BID ORAL 04/22/20 09:00 06/06/20 08:59 04/23/20 17:21 Seth Blackwell MD Apr 24, 2020 11:34
--- NOTE | 2020-04-24 12:30 | NUR ---
NURSE NOTES: patient was seen by . notified MD patient has been refusing nursing care. taking vital sign. medications including IV ATB. MD is aware. received order to keep monitoring patient.
--- NOTE | 2020-04-24 13:19 | Pulmonology Progress Note ---
Subjective ROS Limited/Unobtainable: Yes Interval Events: no acute events overnight reported Constitutional: Denies: fever HEENT: Repors: no symptoms Respiratory: Reports: no symptoms Cardiovascular: Reports: no symptoms Gastrointestinal/Abdominal: Reports: no symptoms Allergies: Coded Allergies: No Known Allergies (Unverified , 07/24/15) Objective Last 24 Hour Vital Signs Date Time Temp Pulse Resp B/P (MAP) Pulse Ox O2 Delivery O2 Flow Rate FiO2 04/24/20 09:00 Room Air 04/24/20 00:00 98.7 04/23/20 20:54 Room Air 04/23/20 20:00 72 19 95 04/23/20 16:00 97.6 66 20 115/63 (80) 96 Intake and Output 04/23/20 04/24/20 19:00 07:00 Intake Total 500 ml 150 ml Balance 500 ml 150 ml Intake Oral 150 ml Other 500 ml # Voids 2 Objective 04/24/2020 pt stating she's cold in the room; refusing- vitals, physical exam, medications; adjusted room temp- continue to encourage 04/23/2020 pt laying in bed; swell saturated on RA General Appearance: WD/WN, no acute distress HEENT: normocephalic, atraumatic Respiratory: chest wall non-tender, lungs clear Cardiovascular: normal rate, regular rhythm, no JVD Abdomen: normal bowel sounds, soft, non tender Skin: other - dermatitis of face, arms- her face appears more purple than red today Microbiology Date/Time Source Procedure Growth Status 04/22/20 00:30 Nasal Nares - Final Complete 04/22/20 00:30 Nasal Nares - Final Complete 04/22/20 00:30 Nasopharynx SARS-CoV-2 RdRp Gene Assay - Final Complete 04/22/20 00:30 Blood Blood Culture - Preliminary NO GROWTH AFTER 48 HOURS Resulted 04/22/20 00:00 Blood Blood Culture - Preliminary NO GROWTH AFTER 48 HOURS Resulted Current Medications Medications (Trade) Dose Ordered Sig/Jad Route PRN Reason Start Time Stop Time Status Last Admin Dose Admin Acetaminophen (Tylenol) 500 mg Q4H PRN ORAL Mild Pain (Pain Scale 1-3) 04/22/20 07:00 05/22/20 06:59 Acetaminophen (Tylenol) 650 mg Q4H PRN ORAL Temp >100.5 04/22/20 10:45 1/6/21 10:44 Albuterol Sulfate (Proventil MDI) 2 puff Q4H PRN INH Shortness of Breath 04/22/20 12:45 07/21/20 12:44 Ascorbic Acid (Vitamin C) 500 mg DAILY ORAL 04/22/20 09:00 05/22/20 08:59 04/22/20 08:48 Azithromycin 500 mg/Dextrose 275 ml @ 275 mls/hr Q24HRS IV 04/23/20 22:00 04/28/20 22:59 Barium Sulfate (Varibar [place]) 250 ml NOW PRN MC RAD 04/22/20 07:15 04/25/20 07:06 Barium Sulfate (Varibar [place]) 240 ml NOW PRN MC RAD 04/22/20 07:15 04/25/20 07:06 Barium Sulfate (Varibar [place]udding) 230 ml NOW PRN MC RAD 04/22/20 07:15 04/25/20 07:06 Barium Sulfate (Varibar Thin Liquid powder) 148 gm NOW PRN MC RAD 04/22/20 07:15 04/25/20 07:06 Bisacodyl (Dulcolax) 10 mg Q8HR PRN RECTAL Constipation 04/22/20 07:00 07/21/20 06:59 Calcium Carbonate (Os-Carlos Enrique) 1,000 mg EVERY 6 HOURS PRN ORAL Heartburn 04/22/20 07:00 07/21/20 06:59 Ceftriaxone Sodium 1 gm/ Dextrose 55 ml @ 110 mls/hr Q24H IVPB 04/23/20 23:00 04/30/20 22:59 Escitalopram Oxalate (Lexapro) 10 mg DAILY ORAL 04/22/20 09:00 05/22/20 08:59 04/22/20 08:48 Levothyroxine Sodium (Synthroid) 100 mcg DAILY IV 04/23/20 09:00 05/23/20 08:59 Magnesium Hydroxide (Mom) 30 ml EVERY 6 HOURS PRN ORAL Constipation 04/22/20 07:00 05/22/20 06:59 Olanzapine (ZyPREXA) 2.5 mg BID ORAL 04/22/20 09:00 06/06/20 08:59 04/23/20 17:21 Assessment/Plan Assessment/Plan 1. COVID-19 with history of fever. - Given her normoxemic status on room air, hold off Decadron and monitor saturation. - Keep respiratory isolation. - Remdesivir and antibiotics per ID. - Broad spectrum antibiotics ordered. 2. History of COPD. - Stable. - Albuterol added. 3. Slight right infrahilar opacity. 4. DVT ppx - 04/22 venous duplex negative for DVT - pt declined to be on SCD - Currently pt denies CP, SOB, dyspnea, leg swelling We will follow carefully. The care for this patient was discussed with my supervising physician. Time spent for this case was approximately 31 minutes The patient was seen and examined at bedside and all new and available data was reviewed in the patients chart. I agree with the above findings, impression, and plan. (Patient was seen earlier today. Signature timestamp does not reflect patient encounter time) Don Rudolph MD Apr 24, 2020 13:19 Wisam Aponte MD Apr 24, 2020 17:27
--- NOTE | 2020-04-24 15:10 | NUR ---
CASE MANAGEMENT:REVIEW SI;COVID PNEUMONIA. RESPIRATORY INSUFFICIENCY. 98.7 PATIENT REFUSED ALL OTHER VITALS IS;ROCEPHIN IV Q24 ZITHROMAX IV Q24 SYNTHROID PO QD VIT C PO QD MED SURG STATUS DCP;FROM [facility]
--- NOTE | 2020-04-24 17:12 | General Progress Note ---
Subjective ROS Limited/Unobtainable: Yes Allergies: Coded Allergies: No Known Allergies (Unverified , 07/24/15) Objective Last 24 Hour Vital Signs Date Time Temp Pulse Resp B/P (MAP) Pulse Ox O2 Delivery O2 Flow Rate FiO2 04/24/20 09:00 Room Air 04/24/20 00:00 98.7 04/23/20 20:54 Room Air 04/23/20 20:00 72 19 95 Intake and Output 04/23/20 04/24/20 19:00 07:00 Intake Total 500 ml 150 ml Balance 500 ml 150 ml Intake Oral 150 ml Other 500 ml # Voids 2 Height (Feet): 5 Height (Inches): 3.00 Weight (Pounds): 168 Assessment/Plan Problem List: (1) Dyspnea ICD Codes: R06.00 - Dyspnea, unspecified SNOMED: 665047356 (2) COPD exacerbation ICD Codes: J44.1 - Chronic obstructive pulmonary disease with (acute) exacerbation SNOMED: 688416602 (3) Dementia with behavioral disturbance ICD Codes: F03.91 - Unspecified dementia with behavioral disturbance SNOMED: 7743230496882 (4) COVID-19 ICD Codes: U07.1 - COVID-19 SNOMED: 166144514 Status: progressing Assessment/Plan: covid positive pna resp inuff psych history reviewed chart and labs improving Mimi Carroll MD Apr 24, 2020 17:12
--- NOTE | 2020-04-24 19:03 | NUR ---
NURSE HAND-OFF: Important Events on Shift:Patient refusing care, medications, IV meds canceled, keep monitoring and documenting Patient Status: stable Diet: regular Pending Orders: n/a Pending Results/Labs:n/a Pending MD notification:n/a Latest Vital Signs: Temperature 98.7 , Pulse 72 , B/P 115 /63 , Respiratory Rate 19 , O2 SAT 95 , Room Air, O2 Flow Rate . Vital Sign Comment: refusing to have vitals taken Latest Garza Fall Score: 20 Fall Risk: Low Risk Safety Measures: Call light Within Reach, Bed Alarm Zone 1, Side Rails Side Rails x2, Bed position Low and Locked. Fall Precautions: Yellow Socks Report given to Daly.
--- NOTE | 2020-04-24 20:39 | NUR ---
NURSE NOTES: Patient refused 2000 vitals, insists she "feels fine" and wants to be left alone. IV meds discontinued. Bed low and locked, patient wearing non slip socks. Patient refusing for skin and IV access to be assessed. No s/s of acute distress.
--- NOTE | 2020-04-25 07:05 | NUR ---
NURSE NOTES: received patient in bed. patient awake, verbally responsive, no sign of respiratory distress, on room air. denies pain or discomfort, patient noncompliant , resistive to care refused taking vital sign.refused HL insertion, patient has been refusing nursing care on fall and isolation precaution. bed in the lowest position and locked. call light within reach. will continue to provide plan of care. ro garcia Addendum: 04/25/20 at 1449 by MARIE MARTINEZ RN RN NURSE NOTES: received patient in bed. patient awake, verbally responsive, no sign of respiratory distress, on room air. denies pain or discomfort, patient noncompliant , resistive to care refused taking vital sign.refused to assess HL, if patent or not, patient has been refusing nursing care on fall and isolation precaution. bed in the lowest position and locked. call light within reach. will continue to provide plan of care. ro garcia
--- NOTE | 2020-04-25 07:25 | NUR ---
HAND-OFF: Report given to DAVID Mcneal.
--- NOTE | 2020-04-25 08:49 | NUR ---
nurse notes refused po lacy garcia rn
[2020-04-25] MEDS: Ascorbic Acid 500mg tab ORAL SCH (09:00)
[2020-04-25] MEDS: OLANZapine 2.5mg tab ORAL SCH ×2 (09:00→17:23)
--- NOTE | 2020-04-25 10:24 | Infectious Diseases Prog Note ---
Assessment/Plan Assessment/Plan IMPRESSION: COVID-19 disease seems mild. COPD, Hypothyroidism, Dermatitis, Hypertension, Dementia, Diverticulosis. RECOMMENDATIONS: Observe off antibiotic. Subjective ROS Limited/Unobtainable: No Constitutional: Reports: no symptoms HEENT: Reports: no symptoms Respiratory: Reports: no symptoms Cardiovascular: Reports: no symptoms Gastrointestinal/Abdominal: Reports: no symptoms Genitourinary: Reports: no symptoms Allergies: Coded Allergies: No Known Allergies (Unverified , 07/24/15) Objective Last 24 Hour Vital Signs Date Time Temp Pulse Resp B/P (MAP) Pulse Ox O2 Delivery O2 Flow Rate FiO2 04/25/20 08:15 Room Air 04/25/20 04:00 20 04/25/20 00:00 19 04/24/20 21:32 Room Air 04/24/20 20:00 20 Height (Feet): 5 Height (Inches): 3.00 Weight (Pounds): 168 HEENT: mucous membranes moist Respiratory/Chest: lungs clear Cardiovascular: normal rate Abdomen: soft, non tender Extremities: no edema Skin: rash Neurologic/Psychiatric: alert, responsive Current Medications Medications (Trade) Dose Ordered Sig/Jad Route PRN Reason Start Time Stop Time Status Last Admin Dose Admin Acetaminophen (Tylenol) 500 mg Q4H PRN ORAL Mild Pain (Pain Scale 1-3) 04/22/20 07:00 05/22/20 06:59 Acetaminophen (Tylenol) 650 mg Q4H PRN ORAL Temp >100.5 04/22/20 10:45 05/22/20 10:44 Albuterol Sulfate (Proventil MDI) 2 puff Q4H PRN INH Shortness of Breath 04/22/20 12:45 07/21/20 12:44 Ascorbic Acid (Vitamin C) 500 mg DAILY ORAL 04/22/20 09:00 05/22/20 08:59 04/22/20 08:48 Bisacodyl (Dulcolax) 10 mg Q8HR PRN RECTAL Constipation 04/22/20 07:00 07/21/20 06:59 Calcium Carbonate (Os-Carlos Enrique) 1,000 mg EVERY 6 HOURS PRN ORAL Heartburn 04/22/20 07:00 07/21/20 06:59 Escitalopram Oxalate (Lexapro) 10 mg DAILY ORAL 04/22/20 09:00 05/22/20 08:59 04/22/20 08:48 Levothyroxine Sodium (Synthroid) 100 mcg DAILY IV 04/23/20 09:00 05/23/20 08:59 Magnesium Hydroxide (Mom) 30 ml EVERY 6 HOURS PRN ORAL Constipation 04/22/20 07:00 05/22/20 06:59 Olanzapine (ZyPREXA) 2.5 mg BID ORAL 04/22/20 09:00 06/06/20 08:59 04/23/20 17:21 Seth Blackwell MD Apr 25, 2020 10:23
--- NOTE | 2020-04-25 12:04 | Pulmonology Progress Note ---
Subjective ROS Limited/Unobtainable: No Interval Events: no acute events overnight reported; still refusing care and vitals Constitutional: Reports: no symptoms HEENT: Repors: no symptoms Respiratory: Reports: no symptoms Cardiovascular: Reports: no symptoms Gastrointestinal/Abdominal: Reports: no symptoms Allergies: Coded Allergies: No Known Allergies (Unverified , 07/24/15) Objective Last 24 Hour Vital Signs Date Time Temp Pulse Resp B/P (MAP) Pulse Ox O2 Delivery O2 Flow Rate FiO2 04/25/20 08:15 Room Air 04/25/20 04:00 20 04/25/20 00:00 19 04/24/20 21:32 Room Air 04/24/20 20:00 20 Intake and Output 04/24/20 04/25/20 19:00 07:00 Intake Total 120 ml Balance 120 ml Intake Oral 120 ml Objective 04/25/2020 still refusing vitals and all meds; otherwise saturating well on room air 04/24/2020 pt stating she's cold in the room; refusing- vitals, physical exam, medications; adjusted room temp- continue to encourage 04/23/2020 pt laying in bed; swell saturated on RA General Appearance: WD/WN, no acute distress HEENT: normocephalic, atraumatic Respiratory: chest wall non-tender, lungs clear Cardiovascular: normal rate, regular rhythm, no JVD Abdomen: normal bowel sounds, soft, non tender Skin: other - dermatitis of face- stable Current Medications Medications (Trade) Dose Ordered Sig/Jad Route PRN Reason Start Time Stop Time Status Last Admin Dose Admin Acetaminophen (Tylenol) 500 mg Q4H PRN ORAL Mild Pain (Pain Scale 1-3) 04/22/20 07:00 05/22/20 06:59 Acetaminophen (Tylenol) 650 mg Q4H PRN ORAL Temp >100.5 04/22/20 10:45 05/22/20 10:44 Albuterol Sulfate (Proventil MDI) 2 puff Q4H PRN INH Shortness of Breath 04/22/20 12:45 07/21/20 12:44 Ascorbic Acid (Vitamin C) 500 mg DAILY ORAL 04/22/20 09:00 05/22/20 08:59 04/22/20 08:48 Bisacodyl (Dulcolax) 10 mg Q8HR PRN RECTAL Constipation 04/22/20 07:00 07/21/20 06:59 Calcium Carbonate (Os-Carlos Enrique) 1,000 mg EVERY 6 HOURS PRN ORAL Heartburn 04/22/20 07:00 07/21/20 06:59 Escitalopram Oxalate (Lexapro) 10 mg DAILY ORAL 04/22/20 09:00 05/22/20 08:59 04/22/20 08:48 Levothyroxine Sodium (Synthroid) 100 mcg DAILY IV 04/23/20 09:00 05/23/20 08:59 Magnesium Hydroxide (Mom) 30 ml EVERY 6 HOURS PRN ORAL Constipation 04/22/20 07:00 05/22/20 06:59 Olanzapine (ZyPREXA) 2.5 mg BID ORAL 04/22/20 09:00 06/06/20 08:59 04/23/20 17:21 Assessment/Plan Assessment/Plan 1. COVID-19 with history of fever. - Given her normoxemic status on room air, hold off Decadron and monitor saturation. - Keep respiratory isolation. - s/p Remdesivir and antibiotics - s/p Broad spectrum antibiotics - observe off Abx per ID 2. History of COPD. - Stable. - Albuterol added. 3. CXR 04/22/2020 Slight right infrahilar opacity. 4. DVT ppx - 04/22 venous duplex negative for DVT - pt declined to be on SCD - Currently pt denies CP, SOB, dyspnea, leg swelling We will follow carefully. The care for this patient was discussed with my supervising physician. Time spent for this case was approximately 31 minutes The patient was seen and examined at bedside and all new and available data was reviewed in the patients chart. I agree with the above findings, impression, and plan. (Patient was seen earlier today. Signature timestamp does not reflect patient encounter time) Don Rudolph MD Apr 25, 2020 12:04 Wisam Aponte MD Apr 25, 2020 17:59
--- NOTE | 2020-04-25 12:37 | General Progress Note ---
Subjective ROS Limited/Unobtainable: Yes Allergies: Coded Allergies: No Known Allergies (Unverified , 07/24/15) Objective Last 24 Hour Vital Signs Date Time Temp Pulse Resp B/P (MAP) Pulse Ox O2 Delivery O2 Flow Rate FiO2 04/25/20 08:15 Room Air 04/25/20 04:00 20 04/25/20 00:00 19 04/24/20 21:32 Room Air 04/24/20 20:00 20 Intake and Output 04/24/20 04/25/20 19:00 07:00 Intake Total 120 ml Balance 120 ml Intake Oral 120 ml Height (Feet): 5 Height (Inches): 3.00 Weight (Pounds): 168 Assessment/Plan Problem List: (1) Dyspnea ICD Codes: R06.00 - Dyspnea, unspecified SNOMED: 898722673 (2) COPD exacerbation ICD Codes: J44.1 - Chronic obstructive pulmonary disease with (acute) exacerbation SNOMED: 531754084 (3) Dementia with behavioral disturbance ICD Codes: F03.91 - Unspecified dementia with behavioral disturbance SNOMED: 2652147009056 (4) COVID-19 ICD Codes: U07.1 - COVID-19 SNOMED: 106482648 Status: progressing Assessment/Plan: covid positive pna resp inuff copd exacerbation afebrile reviewed chart and labs Mimi Carroll MD Apr 25, 2020 12:37
--- NOTE | 2020-04-25 17:42 | General Progress Note ---
Subjective ROS Limited/Unobtainable: Yes Allergies: Coded Allergies: No Known Allergies (Unverified , 07/24/15) Subjective events noted refusing medications in COVID isolation Objective Last 24 Hour Vital Signs Date Time Temp Pulse Resp B/P (MAP) Pulse Ox O2 Delivery O2 Flow Rate FiO2 04/25/20 08:15 Room Air 04/25/20 04:00 20 04/25/20 00:00 19 04/24/20 21:32 Room Air 04/24/20 20:00 20 Intake and Output 04/24/20 04/25/20 19:00 07:00 Intake Total 120 ml Balance 120 ml Intake Oral 120 ml Height (Feet): 5 Height (Inches): 3.00 Weight (Pounds): 168 Objective Current Medications Medications (Trade) Dose Ordered Sig/Jad Route PRN Reason Start Time Stop Time Status Last Admin Dose Admin Acetaminophen (Tylenol) 500 mg Q4H PRN ORAL Mild Pain (Pain Scale 1-3) 04/22/20 07:00 05/22/20 06:59 Acetaminophen (Tylenol) 650 mg Q4H PRN ORAL Temp >100.5 04/22/20 10:45 05/22/20 10:44 Albuterol Sulfate (Proventil MDI) 2 puff Q4H PRN INH Shortness of Breath 04/22/20 12:45 07/21/20 12:44 Ascorbic Acid (Vitamin C) 500 mg DAILY ORAL 04/22/20 09:00 05/22/20 08:59 04/22/20 08:48 Bisacodyl (Dulcolax) 10 mg Q8HR PRN RECTAL Constipation 04/22/20 07:00 07/21/20 06:59 Calcium Carbonate (Os-Carlos Enrique) 1,000 mg EVERY 6 HOURS PRN ORAL Heartburn 04/22/20 07:00 07/21/20 06:59 Escitalopram Oxalate (Lexapro) 10 mg DAILY ORAL 04/22/20 09:00 05/22/20 08:59 04/22/20 08:48 Levothyroxine Sodium (Synthroid) 100 mcg DAILY IV 04/23/20 09:00 05/23/20 08:59 Magnesium Hydroxide (Mom) 30 ml EVERY 6 HOURS PRN ORAL Constipation 04/22/20 07:00 05/22/20 06:59 Olanzapine (ZyPREXA) 2.5 mg BID ORAL 04/22/20 09:00 06/06/20 08:59 04/23/20 17:21 Assessment/Plan Problem List: (1) Hypothyroidism ICD Codes: E03.9 - Hypothyroidism, unspecified SNOMED: 34087861 (2) COVID-19 ICD Codes: U07.1 - COVID-19 SNOMED: 277366231 Status: progressing Assessment/Plan: elevated TSH due to non compliance with Levothyroxine changed to IV - still refusing Mateo Johnson MD Apr 25, 2020 17:42
--- NOTE | 2020-04-25 19:26 | NUR ---
NURSE HAND-OFF: Important Events on Shift:[refused everything, v/s, medicine, to eat, refuse care] Patient Status: [no change] Diet: CCHO M] Pending Orders: [NONE] Pending Results/Labs:[NONE] Pending MD notification:[NONE] Latest Vital Signs: Temperature 98.7 , Pulse 72 , B/P 115 /63 , Respiratory Rate 20 , O2 SAT 95 , Room Air, O2 Flow Rate . Vital Sign Comment: [REFUSED] Latest Garza Fall Score: 20 Fall Risk: Low Risk Safety Measures: Call light Within Reach, Bed Alarm Zone 1, Side Rails Side Rails x2, Bed position Low and Locked. Fall Precautions: Yellow Socks Report given to SPENSER BLANTON, DAVID].
--- NOTE | 2020-04-25 19:50 | NUR ---
NURSE NOTES: Pt is in bed, awake and alert. Greek speaking. No acute distress noted. No SOB.Pt is on room air. Pt ambulates to the bathroom. Pt refuses vitals signs check and refuses care time to time. Pt instructed to call for assistance before getting out of bed. Fall precaution in place, bed alarm on, bed locked low in position,side rails up and call light within reach. Pt will be monitored.
[2020-04-25 20:00] VITALS: BP 127/68
--- NOTE | 2020-04-26 05:30 | NUR ---
NURSE NOTES: Pt is in bed, awake and verbal. No acute distress noted. No SOB. Pt refuses to have vitas signs taken overnight. Pt's daughter called inquiring about the patient. Daughter updated on the condition. Informed daughter of pt's uncooperativeness, informed daughter to encourage patient to take medications. Pt has no IV access. Pt refuses to have an IV access inserted despite numerous attempt and education, NO IV medication is due at this time. Fall precaution in place.
--- NOTE | 2020-04-26 07:00 | General Progress Note ---
Subjective ROS Limited/Unobtainable: Yes Allergies: Coded Allergies: No Known Allergies (Unverified , 07/24/15) Subjective events noted refusing medications in COVID isolation Objective Last 24 Hour Vital Signs Date Time Temp Pulse Resp B/P (MAP) Pulse Ox O2 Delivery O2 Flow Rate FiO2 04/25/20 21:00 Room Air 04/25/20 20:00 98.6 86 18 127/68 (87) 92 04/25/20 08:15 Room Air Intake and Output 04/25/20 04/26/20 19:00 07:00 Intake Total 250 ml Balance 250 ml Intake Oral 250 ml # Voids 2 2 Height (Feet): 5 Height (Inches): 3.00 Weight (Pounds): 168 Objective Current Medications Medications (Trade) Dose Ordered Sig/Jad Route PRN Reason Start Time Stop Time Status Last Admin Dose Admin Acetaminophen (Tylenol) 500 mg Q4H PRN ORAL Mild Pain (Pain Scale 1-3) 04/22/20 07:00 05/22/20 06:59 Acetaminophen (Tylenol) 650 mg Q4H PRN ORAL Temp >100.5 04/22/20 10:45 05/22/20 10:44 Albuterol Sulfate (Proventil MDI) 2 puff Q4H PRN INH Shortness of Breath 04/22/20 12:45 07/21/20 12:44 Ascorbic Acid (Vitamin C) 500 mg DAILY ORAL 04/22/20 09:00 05/22/20 08:59 04/22/20 08:48 Bisacodyl (Dulcolax) 10 mg Q8HR PRN RECTAL Constipation 04/22/20 07:00 07/21/20 06:59 Calcium Carbonate (Os-Carlos Enrique) 1,000 mg EVERY 6 HOURS PRN ORAL Heartburn 04/22/20 07:00 07/21/20 06:59 Escitalopram Oxalate (Lexapro) 10 mg DAILY ORAL 04/22/20 09:00 05/22/20 08:59 04/22/20 08:48 Levothyroxine Sodium (Synthroid) 100 mcg DAILY IV 04/23/20 09:00 05/23/20 08:59 Magnesium Hydroxide (Mom) 30 ml EVERY 6 HOURS PRN ORAL Constipation 04/22/20 07:00 05/22/20 06:59 Olanzapine (ZyPREXA) 2.5 mg BID ORAL 04/22/20 09:00 06/06/20 08:59 04/23/20 17:21 Assessment/Plan Problem List: (1) Hypothyroidism ICD Codes: E03.9 - Hypothyroidism, unspecified SNOMED: 92616854 (2) COVID-19 ICD Codes: U07.1 - COVID-19 SNOMED: 179866280 Status: progressing Assessment/Plan: elevated TSH due to non compliance with Levothyroxine changed to IV - still refusing Mateo Johnson MD Apr 26, 2020 07:00
--- NOTE | 2020-04-26 07:07 | NUR ---
NURSE HAND-OFF: Important Events on Shift:[Pt refuises Meds, Vital signs and IV access] Patient Status: [Stable] [facility]: [facility]] Pending Orders: [] Pending Results/Labs:[] Pending MD notification:[] Latest Vital Signs: Temperature 98.6 , Pulse 86 , B/P 127 /68 , Respiratory Rate 18 , O2 SAT 92 , Room Air, O2 Flow Rate . Vital Sign Comment: [] Latest Garza Fall Score: 20 Fall Risk: Low Risk Safety Measures: Call light Within Reach, Bed Alarm Zone 1, Side Rails Side Rails x2, Bed position Low and Locked. Fall Precautions: Yellow Socks Report given to [Elizabet Stein RN. informed patient is fall risk.].
--- NOTE | 2020-04-26 07:35 | NUR ---
NURSE NOTES: received patient in bed, patient awake and alert. jordanian speaking. No sign of distress, denies pain or discomfort, .Pt is on room air, ambulates to the bathroom. allowed me to take vitals signs at this time but refused to eat at this time, Pt instructed to call for assistance before getting out of bed. Fall precaution in place, bed alarm on, bed locked low in position,side rails up and call light within reach. Pt will be monitored ro garcia
[2020-04-26] MEDS: Ascorbic Acid 500mg tab ORAL SCH (08:09)
[2020-04-26] MEDS: OLANZapine 2.5mg tab ORAL SCH ×2 (08:09→18:00)
--- NOTE | 2020-04-26 08:10 | NUR ---
nurse notes refused po meds at this time ro garcia
[2020-04-26 08:11] VITALS: BP 128/70
--- NOTE | 2020-04-26 10:14 | NUR ---
DISCHARGE PLANNING PATIENT HAS BEEN REF[facility]ED [facility] P [phone] F [phone] BENJAMIN IN RE TO DC PLAN. AWAITING CALL BACK.
--- NOTE | 2020-04-26 10:59 | Infectious Diseases Prog Note ---
Assessment/Plan Assessment/Plan IMPRESSION: COVID-19 disease seems mild. COPD, Hypothyroidism, Dermatitis, Hypertension, Dementia, Diverticulosis. Positive blood culture RECOMMENDATIONS: Observe off antibiotic. Will f/u blood culture Subjective ROS Limited/Unobtainable: Yes Constitutional: Denies: fever Allergies: Coded Allergies: No Known Allergies (Unverified , 07/24/15) Objective Last 24 Hour Vital Signs Date Time Temp Pulse Resp B/P (MAP) Pulse Ox O2 Delivery O2 Flow Rate FiO2 04/26/20 08:11 98.4 92 18 128/70 (89) 94 04/26/20 08:10 Room Air 04/25/20 21:00 Room Air 04/25/20 20:00 98.6 86 18 127/68 (87) 92 Height (Feet): 5 Height (Inches): 3.00 Weight (Pounds): 168 HEENT: mucous membranes moist Respiratory/Chest: lungs clear Cardiovascular: normal rate Abdomen: soft, non tender Extremities: no edema Skin: rash Neurologic/Psychiatric: other - sleeping Current Medications Medications (Trade) Dose Ordered Sig/Jad Route PRN Reason Start Time Stop Time Status Last Admin Dose Admin Acetaminophen (Tylenol) 500 mg Q4H PRN ORAL Mild Pain (Pain Scale 1-3) 04/22/20 07:00 05/22/20 06:59 Acetaminophen (Tylenol) 650 mg Q4H PRN ORAL Temp >100.5 04/22/20 10:45 05/22/20 10:44 Albuterol Sulfate (Proventil MDI) 2 puff Q4H PRN INH Shortness of Breath 04/22/20 12:45 07/21/20 12:44 Ascorbic Acid (Vitamin C) 500 mg DAILY ORAL 04/22/20 09:00 05/22/20 08:59 04/22/20 08:48 Bisacodyl (Dulcolax) 10 mg Q8HR PRN RECTAL Constipation 04/22/20 07:00 07/21/20 06:59 Calcium Carbonate (Os-Carlos Enrique) 1,000 mg EVERY 6 HOURS PRN ORAL Heartburn 04/22/20 07:00 07/21/20 06:59 Escitalopram Oxalate (Lexapro) 10 mg DAILY ORAL 04/22/20 09:00 05/22/20 08:59 04/22/20 08:48 Levothyroxine Sodium (Synthroid) 100 mcg DAILY IV 04/23/20 09:00 05/23/20 08:59 Magnesium Hydroxide (Mom) 30 ml EVERY 6 HOURS PRN ORAL Constipation 04/22/20 07:00 05/22/20 06:59 Olanzapine (ZyPREXA) 2.5 mg BID ORAL 04/22/20 09:00 06/06/20 08:59 04/23/20 17:21 Seth Blackwell MD Apr 26, 2020 10:59
--- NOTE | 2020-04-26 12:39 | Pulmonology Progress Note ---
Subjective ROS Limited/Unobtainable: Yes Interval Events: no acute events overnight reported; still refusing care and vitals Constitutional: Denies: fever HEENT: Repors: no symptoms Respiratory: Reports: no symptoms Cardiovascular: Reports: no symptoms Gastrointestinal/Abdominal: Reports: no symptoms Allergies: Coded Allergies: No Known Allergies (Unverified , 07/24/15) Objective Last 24 Hour Vital Signs Date Time Temp Pulse Resp B/P (MAP) Pulse Ox O2 Delivery O2 Flow Rate FiO2 04/26/20 08:11 98.4 92 18 128/70 (89) 94 04/26/20 08:10 Room Air 04/25/20 21:00 Room Air 04/25/20 20:00 98.6 86 18 127/68 (87) 92 Intake and Output 04/25/20 04/26/20 19:00 07:00 Intake Total 250 ml Balance 250 ml Intake Oral 250 ml # Voids 2 2 Objective 04/26/2020 still refusing vitals and all meds; otherwise NAD 04/25/2020 still refusing vitals and all meds; otherwise saturating well on room air 04/24/2020 pt stating she's cold in the room; refusing- vitals, physical exam, medications; adjusted room temp- continue to encourage 04/23/2020 pt laying in bed; swell saturated on RA General Appearance: WD/WN, no acute distress HEENT: normocephalic, atraumatic Respiratory: chest wall non-tender, lungs clear Cardiovascular: normal rate, regular rhythm, no JVD Abdomen: normal bowel sounds, soft, non tender Skin: other - dermatitis of face- stable Current Medications Medications (Trade) Dose Ordered Sig/Jad Route PRN Reason Start Time Stop Time Status Last Admin Dose Admin Acetaminophen (Tylenol) 500 mg Q4H PRN ORAL Mild Pain (Pain Scale 1-3) 04/22/20 07:00 05/22/20 06:59 Acetaminophen (Tylenol) 650 mg Q4H PRN ORAL Temp >100.5 04/22/20 10:45 05/22/20 10:44 Albuterol Sulfate (Proventil MDI) 2 puff Q4H PRN INH Shortness of Breath 04/22/20 12:45 07/21/20 12:44 Ascorbic Acid (Vitamin C) 500 mg DAILY ORAL 04/22/20 09:00 05/22/20 08:59 04/22/20 08:48 Bisacodyl (Dulcolax) 10 mg Q8HR PRN RECTAL Constipation 04/22/20 07:00 07/21/20 06:59 Calcium Carbonate (Os-Carlos Enrique) 1,000 mg EVERY 6 HOURS PRN ORAL Heartburn 04/22/20 07:00 07/21/20 06:59 Escitalopram Oxalate (Lexapro) 10 mg DAILY ORAL 04/22/20 09:00 05/22/20 08:59 04/22/20 08:48 Levothyroxine Sodium (Synthroid) 100 mcg DAILY IV 04/23/20 09:00 05/23/20 08:59 Magnesium Hydroxide (Mom) 30 ml EVERY 6 HOURS PRN ORAL Constipation 04/22/20 07:00 05/22/20 06:59 Olanzapine (ZyPREXA) 2.5 mg BID ORAL 04/22/20 09:00 06/06/20 08:59 04/23/20 17:21 Assessment/Plan Assessment/Plan 1. COVID-19 with history of fever. - Given her normoxemic status on room air, hold off Decadron and monitor saturation. - Keep respiratory isolation. - s/p Remdesivir and antibiotics - s/p Broad spectrum antibiotics - observe off Abx per ID 2. History of COPD. - Stable. - Albuterol added. 3. CXR 04/22/2020 Slight right infrahilar opacity. 4. DVT ppx - 04/22 venous duplex negative for DVT - pt declined to be on SCD - Currently pt denies CP, SOB, dyspnea, leg swelling dc planning- per case therapist and attending physician The care for this patient was discussed with my supervising physician. Time spent for this case was approximately 31 minutes Don Bhatia Apr 26, 2020 12:39
--- NOTE | 2020-04-26 13:45 | NUR ---
NURSE NOTES With order discharge back to [facility] , continue home meds, discontinue hospital meds notify Dr Jenn Blackwell for antibiotic order ro garcia
--- NOTE | 2020-04-26 14:12 | NUR ---
nurse notes no antibiotic order to snf per dr morelia ying, rn
--- NOTE | 2020-04-26 18:30 | NUR ---
nurse notes with order discharge back to SNF, patient daughter notified agreed with the plan of care, report given to Noemi HERNANDEZ receiving nurse from [facility], Patient awaiting for ambulance personnel/transport ro garcia
--- NOTE | 2020-04-26 18:36 | NUR ---
nurse notes notified patient daughter, william Torres will be discharge jose navarrete, rn
--- NOTE | 2020-04-26 19:29 | NUR ---
NURSE NOTES: Received patient in bed, awake and alert, Arabic speaking. No signs of distress, nor discomfort, .Pt is on room air, ambulates to the bathroom, with assistance. It was reported that pt has been refusing treatment such as medications and vital signs, will educate pt and try to see if she will accept treatment such as medications and allow us to take her vital signs. Pt was instructed to call for assistance before getting out of bed, Fall precaution in place, bed is locked in lowest position, bed alarm on, side rails up x2 and call light within reach. Will continue with plan of care. Addendum: 04/26/20 at 1939 by Alexandra Boykin RN pt scheduled to be discharged today, report was given to Noemi on previous shift. [facility] will be coming to pick her up and bring her to [facility]
--- NOTE | 2020-04-26 19:30 | NUR ---
NURSE NOTES Report given to Ms Lucretia HERNANDEZ , patient will be discharge to SNF (report given to Noemi HERNANDEZ) , awaiting for transportation ro garcia
--- NOTE | 2020-04-26 19:32 | NUR ---
NURSE NOTES: Pt will be being discharged back to SNF [facility] dc'sadie by Dr navarro, [facility] ambulance called and gave an eta of 1830. will call [facility] again to update time they will be coming
[2020-04-26 20:00] VITALS: BP 100/59
--- NOTE | 2020-04-26 20:30 | General Progress Note ---
Subjective ROS Limited/Unobtainable: Yes Allergies: Coded Allergies: No Known Allergies (Unverified , 07/24/15) Objective Last 24 Hour Vital Signs Date Time Temp Pulse Resp B/P (MAP) Pulse Ox O2 Delivery O2 Flow Rate FiO2 04/26/20 08:11 98.4 92 18 128/70 (89) 94 04/26/20 08:10 Room Air 04/25/20 21:00 Room Air Intake and Output 04/25/20 04/26/20 19:00 07:00 Intake Total 250 ml Balance 250 ml Intake Oral 250 ml # Voids 2 2 Height (Feet): 5 Height (Inches): 3.00 Weight (Pounds): 168 Assessment/Plan Problem List: (1) Dyspnea ICD Codes: R06.00 - Dyspnea, unspecified SNOMED: 692141591 (2) COPD exacerbation ICD Codes: J44.1 - Chronic obstructive pulmonary disease with (acute) exacerbation SNOMED: 655682817 (3) Dementia with behavioral disturbance ICD Codes: F03.91 - Unspecified dementia with behavioral disturbance SNOMED: 8428142461780 (4) COVID-19 ICD Codes: U07.1 - COVID-19 SNOMED: 746870763 Status: progressing Assessment/Plan: covid + refusing care no sob dc back to snf see dc summary Mimi Carroll MD Apr 26, 2020 20:30
[2020-04-27] VITALS: BP 120/76
--- NOTE | 2020-04-27 01:04 | NUR ---
[facility] ambulance is here to transport pt, claling facility as they are concerned with her VS temp 99.3, HR 115
--- NOTE | 2020-04-27 01:10 | NUR ---
NURSE NOTES: Pt transferred with [facility], heart rate is stable at 88 bpm. Pt had low grade temp 99. Pt is being transferred to [facility] via ambulance, no IV access, already dc'd. Report earlier given to Noemi. All belongings- pt is wearing her pajamas. in stable condition for transfer
--- NOTE | 2020-04-29 14:39 | Discharge Summary ---
Discharge Summary Discharge Summary _ DATE OF ADMISSION: 04/22/2020 DATE OF DISCHARGE: 04/27/2020 DISCHARGED BY: Dr Carroll REASON FOR ADMISSION: 79 years old female with past medical history of COPD, hypertension, hypothyroidism, dementia, was sent from the group home facility due to fever. Patient received antipyretic at the facility prior to arrival. Patient also complained of a dry cough. In ED she was afebrile. Pulse oximetry was 92% on the room air. Rapid COVID-19 was positive. Chest x-ray revealed slight right infrahilar opacity. Laboratory work-up revealed no leukocytosis ,stable hemoglobin, hematocrit and platelet count. BUN 19, creatinine 1.2. Lactic acid 1.0. Stable electrolytes. Troponin negative. CRP 1.9, LDH 194 ,ferritin 119. TSH 56.7. In emergency department patient received steroid , empiric antibiotics and admitted for further management . CONSULTANTS: code enforcement supervisor Dr. Johnson pulmonary Dr. Aponte ID specialist Dr. Seth Blackwell [facility] COURSE: Patient admitted to isolation room. Supplemental oxygen provided and titrated to keep pulse oximetry above 92%. Pulmonary toilet provided. Patient was on antibiotic . Respiratory status was closely monitored. Pulse oximetry remained stable on room air. MDI albuterol provided as needed, Given no hypoxia, steroids and Remdesivir were not indicated. Venous duplex bilateral lower extremity revealed no evidence of acute DVT. Patient declined to be on SCD. Per ID specialist COVID-19 disease appeared to be mild. Influenza screen test was negative. Supportive care provided . Per code enforcement supervisor , elevated TSH was likely due to noncompliance with levothyroxine. Route was changed to the IV , and patient received IV Synthroid while in the hospital; then and changed to oral route upon discharge. Patient to follow-up with thyroid function test in one month. Blood pressure was stable without any antihypertensive medication No fevers , stable respiratory status. Patient was sent back to group home facility for continuation of care. FINAL DIAGNOSES: COVID-19 disease, mild Hypothyroidism with elevated TSH COPD Hypertension Dementia with behavioral disturbances DISCHARGE MEDICATIONS: See Medication Reconciliation list. DISCHARGE INSTRUCTIONS: Patient was discharged to the group home facility. Follow up with medical doctor at the facility. I have been assigned to dictate discharge summary for this account. I was not involved in the patient's management. Chata Queen NP Apr 29, 2020 14:39
== END 2020-04-27 01:20 | DRG 178 ==
LOC: EDUNIT# 00:12 → EDBD 00:12 → EMR 00:26 → 4E 01:35 → EDBEDREQ 01:54
DX: U07.1 COVID-19 (principal); J44.1 Chronic obstructive pulmonary disease with (acute) exacerbation; F03.91 Unspecified dementia, unspecified severity, with behavioral disturbance; E87.1 Hypo-osmolality and hyponatremia; I10 Essential (primary) hypertension; E03.9 Hypothyroidism, unspecified; K57.90 Diverticulosis of intestine, part unspecified, without perforation or abscess without bleeding
CPT/HCPCS: 36415; 71045; 80053; 82550; 82728; 83605; 83615; 83690; 83735; 83880; 84100; 84443; 84484; 85025; 85610; 85730; 86140; 86710; 87040; 87181; 93005; 93970; 96365; 96367; 96375; 99285; U0002